=== PATIENT | male | born 1940 | race Caucasian/White ===

== ENCOUNTER → 2016-12-09 | Outpatient (CLI) | payer MEDICARE ==
[~2016-12-09] MED LIST: LEVO88TA4 PO; [UNRECOGNIZED DRUG - OTHER] PO
--- NOTE | 2016-12-09 17:03 | RAD ---
Clinical indications: Claudication. Findings: Duplex sonography of the peripheral arterial system of both lower extremities including mccarthy scale evaluation and color flow evaluation and spectral waveform analysis was performed.Abnormal monophasic waveforms are seen within the mid and distal right superficial femoral arteries extending through the right popliteal artery and the calf arteries. However, no occlusive disease or significant stenosis is identified by sonography proximal to this area. On the left side, abnormal flow velocity measurement is seen within the proximal left profunda femoral artery consistent with a 50% stenosis. There is a high flow velocity within the left popliteal artery consistent with a 50% stenosis. The waveforms on the left side are biphasic. No occlusive disease is seen. Peak systolic flow velocities are as follows: Right leg: common femoral artery- 139 cm/sec, profunda femoral artery -97 cm/sec, proximal superficial femoral artery -55cm/sec, mid superficial femoral artery -59 cm/sec, distal superficial femoral artery- 32 cm/sec, popliteal artery -24 cm/sec, proximal posterior tibial artery- 24 cm/sec, peroneal artery- 10 cm/sec, anterior tibial artery- 15 cm/sec, dorsalis pedis artery -11 cm/sec. Left leg: common femoral artery- 77 cm/sec, profunda femoral artery -277 cm/sec, proximal superficial femoral artery- 65cm/sec, mid superficial femoral artery- 131 cm/sec, distal superficial femoral artery- 107 cm/sec, popliteal artery -270 cm/sec, proximal posterior tibial artery -97 cm/sec, peroneal artery -60 cm/sec, anterior tibial artery -37 cm/sec, dorsalis pedis artery- 68 cm/sec. Impression: Abnormal monophasic waveforms are seen on the right side starting at the level of the right mid superficial femoral artery on down. However, no occlusive disease or significant stenosis is seen proximal to this area by sonography. High flow velocities are seen within the proximal left profunda femoral artery and within the left popliteal artery consistent with a 50% stenosis.
== END | disposition home or self-care (01) ==
LOC: US 13:42
PROVIDERS: ATTEND Family Medicine
DX: I73.9 Peripheral vascular disease, unspecified (principal)
CPT/HCPCS: 93925

== ENCOUNTER 2016-12-13 09:45 | Outpatient (CLI) | payer MEDICARE ==
[~2016-12-13] VITALS: Ht 170.2 cm; Wt 67.1 kg
[2016-12-13] VITALS (10 sets, daily range): BP systolic 150–185; BP diastolic 77–107
[2016-12-13] MEDS ORDERED: [UNRECOGNIZED DRUG - OTHER] PO (10:04)
[2016-12-13] MEDS ORDERED: LEVO88TA4 PO (10:04)
[2016-12-13 10:10] LABS: BASO # 0.1 x10^3/uL (0.0-0.2); BASO % 1 % (0-3); EOS % 6 % (0-3); HEMOGLOBIN 15.2 g/dL (13.0-17.5); LYMPH # 1.4 x10^3/uL (1.0-4.8); LYMPH % 22 % (24-48); MEAN CORPUSCULAR HEMOGLOBIN 30 pg (25-35); MEAN CORPUSCULAR HGB CONC 34 g/dL (31-37); MEAN CORPUSCULAR VOLUME 88 fL (79-100); MONO % 9 % (0-9); NEUT % 63 % (31-73); PLATELET COUNT 263 x10^3/uL (140-400); RED BLOOD COUNT 5.13 x10^6/uL (4.30-5.70); RED CELL DISTRIBUTION WIDTH 15.3 % (11.5-14.5); WHITE BLOOD COUNT 6.6 x10^3/uL (4.0-11.0)
[2016-12-13] MEDS ORDERED: IODIXANOL 320MG/ML 50ML VIAL. ONE (10:28)
[2016-12-13] MEDS ORDERED: IOHEXOL 300 MG/ML 100ML VIAL. ONE (10:28)
[2016-12-13] MEDS ORDERED: HEPARIN for ARTERIAL LINE 1,500 ML ONE (10:29)
[2016-12-13] MEDS ORDERED: LIDOCAINE 1% / SOD BICARB 8.4% 20 ML VIAL. IJ ONE ×2 (10:29→11:30)
[2016-12-13] MEDS ORDERED: IODIXANOL 320 MG/ML 100 ML VIAL. ONE (10:29)
[2016-12-13 10:39] LABS: CALCIUM 8.9 mg/dL (8.5-10.1); CREATININE 1.1 mg/dL (0.7-1.3); GFR 64.7; POTASSIUM 4.6 mmol/L (3.5-5.1)
[2016-12-13 10:59] LABS: PROTHROMBIN TIME PATIENT 12.7 SEC (11.7-14.0)
[2016-12-13] MEDS ORDERED: HEPARIN for IV BOLUS 10,000 UNIT/10 ML VIAL. ONE (11:16)
[2016-12-13] MEDS ORDERED: MIDAZOLAM HCL/PF 5 MG/5 ML VIAL. ONE (11:16)
[2016-12-13] MEDS ORDERED: fentaNYL PF VIAL 100 MCG/2 ML VIAL ONE (11:16)
[2016-12-13] MEDS ORDERED: MIDAZOLAM HCL/PF 2 MG/2 ML VIAL. IV ONE (11:30)
[2016-12-13] MEDS ORDERED: MIDAZOLAM HCL/PF 5 MG/5 ML VIAL. IV ONE ×2 (11:30→12:45)
[2016-12-13] MEDS ORDERED: IODIXANOL 320 MG/ML 100 ML VIAL. IART ONE (11:30)
[2016-12-13] MEDS ORDERED: CONTRAST GIVEN MC PRN (11:45)
[2016-12-13] MEDS ORDERED: NITROGLYCERIN 200 MCG/2 ML SYRINGE FOR CATH/VASC LAB. IART ONE (12:30)
[2016-12-13] MEDS ORDERED: fentaNYL PF VIAL 100 MCG/2 ML VIAL IV ONE (12:45)
[2016-12-13] MEDS ORDERED: IV NORMAL SALINE 1000ML BAG 1,000 ML IV ONE (12:45)
--- NOTE | 2016-12-13 13:07 | PDOC ---
MODERATE SEDATION ASSESSMENT RISKS/ALTERNATIVES Risks/Alternatives Risks and alternatives of this type of sedation and procedure discussed with: RISK/ALTERNATIVES: Patient H & P ON CHART H & P H & P on chart and reviewed for co-morbid conditions and appropriate labs. H&P ON CHART: Yes STATUS PREG STATUS ASSESSED: N/A MEDS/ALLERGIES REVIEWED Meds/Allergies Reviewed Medications and Allergies including time and route of recently administered narcotics and sedatives. MEDS/ALLERGIES REVIEWED: Yes ASA RATING ASA RATING: II AIRWAY ASSESSMENT Airway Assessment Airway patency, oral function limitations, presence of caps, crowns, dentures, partials, and ability to extend neck assessed. AIRWAY ASSESSMENT: Yes MALLAMPATI SCORE MALLAMPATI SCORE: II PRE-SEDATION ASSESSMENT PRE-SEDATION ASSESSMENT: Yes MICAH DUTTON MD Dec 13, 2016 13:07
--- NOTE | 2016-12-13 13:17 | PDOC1 ---
History and Physical Date of Procedure Date of Admission 12/13/16 Procedure Procedure Abdominal aortogram with bilateral lower extremity angio +/- intervention. Indication Indication 76 YO smoker with bilateral lower extremity pain, with nonpalpable distal pulses , and with abnormal noninvasive study. Past Medical History Past Medical History See Nursing Pre procedure PMH Past Surgical History Past Surgical History See Nursing Pre procedure PSH Current Medications Current Medications Current Medications Iodixanol (Visipaque 320) 50 ml STK-MED ONCE .ROUTE ; Start 12/13/16 at 10:28; Stop 12/13/16 at 10:29; Status DC Iohexol (Omnipaque 300 Mg/ml) 100 ml STK-MED ONCE .ROUTE ; Start 12/13/16 at 10: 28; Stop 12/13/16 at 10:29; Status DC Lidocaine/Sodium Bicarbonate (Buffered Lidocaine 1%) 20 ml STK-MED ONCE IJ ; Start 12/13/16 at 10:29; Stop 12/13/16 at 10:30; Status DC Heparin Sodium/ Sodium Chloride 1,500 ml @ As Directed STK-MED ONCE .ROUTE ; Start 12/13/16 at 10:29; Stop 12/13/16 at 10:30; Status DC Iodixanol (Visipaque 320) 100 ml STK-MED ONCE .ROUTE ; Start 12/13/16 at 10:29; Stop 12/13/16 at 10:30; Status DC Heparin Sodium (Porcine) (Heparin Sodium) 10,000 unit STK-MED ONCE .ROUTE ; Start 12/13/16 at 11:16; Stop 12/13/16 at 11:17; Status DC Fentanyl Citrate (Fentanyl 2ml Vial) 100 mcg STK-MED ONCE .ROUTE ; Start at 11:16; Stop 12/13/16 at 11:17; Status DC Midazolam HCl (Versed) 5 mg STK-MED ONCE .ROUTE ; Start 12/13/16 at 11:16; Stop 12/13/16 at 11:17; Status DC Heparin Sodium/ Sodium Chloride 1,000 unit 1X ONCE IART Last administered on t 12:38; Start 12/13/16 at 11:30; Stop 12/13/16 at 11:34; Status DC Lidocaine/Sodium Bicarbonate (Buffered Lidocaine 1%) 20 ml 1X ONCE IJ Last administered on 12/13/16t 12:38; Start 12/13/16 at 11:30; Stop 12/13/16 at 11:34 ; Status DC Midazolam HCl (Versed) 5 mg 1X ONCE IV Last administered on 12/13/16 12:39; Start 12/13/16 at 11:30; Stop 12/13/16 at 11:34; Status DC Midazolam HCl (Versed) 2 mg 1X ONCE IV ; Start 12/13/16 at 11:30; Stop at 11:34; Status DC Iodixanol (Visipaque 320) 100 ml 1X ONCE IART Last administered on 12/13/16 12:40; Start 12/13/16 at 11:30; Stop 12/13/16 at 11:34; Status DC Info (Do NOT chart on this entry -- for MONITORING) 1 each PRN DAILY PRN MC SEE COMMENTS; Start 12/13/16 at 11:45; Stop 12/15/16 at 11:44 Nitroglycerin (Nitroglycerin) 200 mcg 1X ONCE IART Last administered on 12:39; Start 12/13/16 at 12:30; Stop 12/13/16 at 12:31; Status DC Midazolam HCl (Versed) 5 mg 1X ONCE IV ; Start 12/13/16 at 12:45; Stop at 12:46; Status DC Fentanyl Citrate (Fentanyl 2ml Vial) 100 mcg 1X ONCE IV Last administered on 12:45; Start 12/13/16 at 12:45; Stop 12/13/16 at 12:46; Status DC Sodium Chloride 1,000 ml @ 100 mls/hr 1X ONCE IV Last administered on 11:30; Start 12/13/16 at 12:45; Stop 12/13/16 at 22:44 Active Scripts Active Reported [medestrol] 5 Ml PO QID Levothyroxine Sodium 88 Mcg Tablet 88 Mcg PO DAILYAC Allergies Allergies: Coded Allergies: No Known Drug Allergies (Unverified , 12/13/16) Physical Exam Vital Signs Vital Signs Date Time Temp Pulse Resp B/P (MAP) Pulse Ox O2 Delivery O2 Flow Rate FiO2 12/13/16 12:45 14 99 Room Air 12/13/16 12:34 78 12/13/16 10:25 98.0 150/88 (108) 98.0 Lungs: Clear to auscultation Heart: Regular rate Psych/Mental Status: Mental status NL Vascular Nonpalpable ankle/foot pulses bilaterally--no ischemic ulcerations Diagnostic Data/Imaging Images PMC bilateral lower extremity duplex Doppler exam from12/09/16 reviewed. Assessment Assessment 76 YO smoker with PAD, bilateral leg pain, nonpalpable distal pulses, and abnormal noninvasive study. Problems: Plan Plan Diagnostic angio +/- intervention, as indicated. MICAH DUTTON MD Dec 13, 2016 13:17
--- NOTE | 2016-12-13 13:34 | PDOC ---
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 Post-Procedure Diagnosis Post-Procedure Diagnosis Multiple angiographic abnormalities. High grade left RYAN. Distal abd aorta ectasia. Bilateral TRACEY aneurysms. Multifocal bilateral EIA stenoses. Short segment chronic right proximal pop occlusion. Mod focal mid left pop stenosis Sluggish 3 vessel r/o to ankle/foot on left. Sluggish right tibial r/o less well evaluated on nonselective images, but at least PT r/o to foot and AT r/o to distal calf. Procedure Performed Procedure Performed Abdominal aortogram with bilateral lower extremity angio. Type of Anesthesia Type of Anesthesia Local + Mod sedation Estimated Blood Loss EBL: 50 cc Condition of Patient Condition of Patient Stable. No apparent complication. Disposition Disposition Home from [facility] post recovery, if no problems. F/u with Dr Stearns, who plans to arrange consult with Dr Faulkner for comprehensive treatment plan. Encourage smoking cessation. Full report to follow. MICAH DUTTON MD Dec 13, 2016 13:34
[2016-12-13] MEDS ORDERED: ACETAMINOPHEN 325 MG TABLET. PO ONE (14:15)
[2016-12-13] MEDS ORDERED: NITROGLYCERIN 200 MCG/2 ML SYRINGE FOR CATH/VASC LAB. ONE (16:08)
--- NOTE | 2016-12-14 11:25 | RAD ---
Abdominal aortogram with bilateral lower extremity arteriogram Indication: 76-year-old male smoker with bilateral lower extremity pain, with abnormal noninvasive study, and with nonpalpable ankle/foot pulses. Diagnostic arteriogram, with possible intervention, has been requested by primary care physician. Fluoroscopy time: 13.4 minutes Kerma-area Product: 201 Gycm2 Contrast material: 55 cc Omnipaque 300. 125 cc Visipaque 320. Anesthesia: 64 minutes moderate sedation was provided utilizing a total of 2 mg Versed and 100 mcg fentanyl, IV. The patient was appropriately monitored by a qualified independent observer throughout the time of moderate sedation. Consent: The procedure was explained in its entirety to the patient and/or the patient's designated pharmaceutical sales representative by a member of the treatment team. This included a discussion of risks and benefits and commonly accepted alternatives to the procedure, as well as expected consequences of no treatment at all. Discussion of risks included, but was not limited to, those that are most frequent and those that are rare, but possibly severe or life-threatening, as well as the possibility of unforeseen complications. Sterility: All elements of maximal sterile barrier technique, hand hygiene, skin preparation, and, if ultrasound was used, sterile ultrasound technique were followed. Procedure: Informed consent was obtained from the patient. He was placed supine on the angiography table. Preliminary ultrasound examination of right groin revealed wide patency of right common femoral artery, which was documented with a single hard copy ultrasound image. Right groin was then prepped and draped in the usual sterile fashion, utilizing all elements of maximal sterile barrier technique, as described above. Moderate sedation was provided with IV Versed and fentanyl. Using aseptic technique, local anesthesia, direct sterile ultrasound guidance, and the micropuncture system, a 5 Czech right common femoral artery sheath was successfully introduced. Abdominal aortogram: A 5 Czech Omni Flush catheter was advanced through the right groin sheath over a Glidewire into suprarenal abdominal aorta under fluoroscopic guidance. Omnipaque 300 was injected and abdominal aortogram DSA images were obtained. Findings: Distal infrarenal abdominal aorta shows moderate fusiform ectasia, without definite calcific aneurysmal dilatation. There is focal 80-90% stenosis within proximal left renal artery. Proximal right renal artery is not well seen in profile SMA is opacified. ZAIRA is likely occluded at its origin. Oblique pelvis injections: The Omni Flush catheter was withdrawn into terminal aorta, just above bifurcation. Omnipaque 300 was injected and DSA images were obtained over pelvis in the KAZAKH and FERGUSON projections. Right side findings: Proximal right common iliac artery is normal in caliber, followed by mid and distal segment aneurysmal dilatation. Small caliber right hypogastric artery is patent, and appears to arise from distal aspect of the common iliac artery aneurysm in the KAZAKH projection. Right external iliac artery is diffusely diseased, including tandem proximal high-grade stenoses. Left side findings: Proximal left common iliac artery shows moderate to high-grade stenosis, followed by mid and distal segment aneurysmal dilatation. Patent left hypogastric artery shows at least moderate origin stenosis, and arises just distal to the common iliac artery aneurysm on FERGUSON images. Areas of moderate stenosis lie within proximal and mid left external iliac artery. Selective/superselective left lower extremity arteriogram: The 5 Czech Omni Flush catheter was advanced across aortic bifurcation over a Glidewire and was initially positioned within contralateral left common femoral artery. Visipaque was injected and DSA images were obtained over left groin and proximal thigh in the steep KAZAKH projection. The Omni Flush catheter was then exchanged for a 0.0 3 5-in. Quick cross catheter, which was advanced over a Glidewire into proximal left SFA. Dilute Visipaque was injected and DSA images were obtained over mid and distal thigh. The quick cross catheter was then further advanced over the Glidewire into proximal left popliteal artery. Dilute Visipaque was injected and DSA images were obtained centered over knee and AP and FERGUSON projections. The quick cross catheter was then further advanced into distal left popliteal artery. Dilute Visipaque was injected and DSA images were obtained from knee through ankle/foot. The quick cross catheter was then exchanged over a long Terumo advantage guidewire for a Sathish Cross catheter, which was superselectively introduced into proximal left anterior tibial artery. Dilute Visipaque was again injected and DSA images were obtained from proximal calf through foot. Findings: Left common femoral artery and bifurcation and deep femoral artery are widely patent. No significant left SFA stenosis is present. Focal moderate stenosis lies within mid left popliteal artery, at level of upper patella, without flow-limiting popliteal artery stenosis. Left tibial trifurcation is widely patent. Images obtained during injection into distal left popliteal artery revealed sluggish opacification of posterior tibial artery, which is widely patent from origin through medial and lateral plantar branches at mid foot. Those images also revealed sluggish opacification of peroneal artery, patent from origin through distal calf. Images obtained during direct injection into proximal left anterior tibial artery revealed sluggish flow through anterior tibial artery, which is patent from origin through dorsalis pedis artery. Right lower extremity runoff: Following selective/superselective left lower extremity arteriogram, the Omni Flush catheter was reintroduced through the right groin 5 Czech sheath and was positioned within the lateral distal right external iliac artery. Visipaque was injected and digital angiographic images were obtained from groin through ankle. Findings: There is mild narrowing within right common femoral artery. Right common femoral artery bifurcation and deep femoral artery are widely patent. Distal 8 cm of right superficial femoral artery shows moderate, generalized narrowing, followed by abrupt, complete, chronic, short segment occlusion, centered near abductor canal. Reconstituted right popliteal artery is widely patent, as is right tibial trifurcation. Tibial trifurcation runoff is sluggish (despite intra-arterial nitroglycerin), and is suboptimally evaluated on this nonselective study. However, right posterior tibial artery is patent from origin through at least ankle, and right anterior tibial artery is widely patent from origin through at least distal calf. Patient tolerated the procedure well without apparent complication. Hemostasis was achieved at the right groin puncture site utilizing the Mynx closure system. Impression: 1. Abdominal aortogram significant for focal severe proximal left renal artery stenosis, and fusiform ectasia of distal infrarenal abdominal aorta. 2. Oblique pelvis images significant for bilateral common iliac artery aneurysms, high-grade proximal left common iliac artery stenosis, tandem high-grade proximal right external iliac artery stenoses, and a moderate left external iliac artery stenoses. 3. Left tibial trifurcation runoff is sluggish. Left lower extremity selective/superselective arteriogram is otherwise unremarkable, without significant stenosis 4. Right lower extremity runoff is significant for focal, complete, chronic, short segment occlusion centered near abductor canal. Right tibial trifurcation runoff is sluggish and is suboptimally evaluated on this nonselective study, however, posterior tibial artery is patent from origin through at least ankle and right anterior tibial artery is patent from origin through at least distal calf.
== END 2016-12-13 15:50 | disposition home or self-care (01) ==
LOC: INTRAD 09:45
PROVIDERS: ATTEND Family Medicine
DX: I70.203 Unspecified atherosclerosis of native arteries of extremities, bilateral legs (principal); I70.1 Atherosclerosis of renal artery; I77.811 Abdominal aortic ectasia; F17.200 Nicotine dependence, unspecified, uncomplicated; E07.9 Disorder of thyroid, unspecified; Z87.39 Personal history of other diseases of the musculoskeletal system and connective tissue; Z72.0 Tobacco use
CPT/HCPCS: 36247; 36415; 75625; 75716; 75774; 76937; 80048; 85027; 85610; 99152; 99153; C1713; C1760; C1769; C1892; C1894; G0269; J2250; J3010; J3490; J7030; Q9967

== ENCOUNTER 2017-02-06 05:48 | Day surgery (SDC) | payer MEDICARE ==
[~2017-02-06 05:48] MED LIST changes: +ASPI-630 PO
[2017-02-06] MEDS ORDERED: IV RINGERS,LACTATED 1000ML 1,000 ML IV SCH (07:00)
[2017-02-06] MEDS ORDERED: MORPHINE SULFATE 2 MG/ML DISP.SYRIN. IV PRN (07:00)
[2017-02-06] MEDS ORDERED: PROCHLORPERAZINE 10 MG/2 ML VIAL. IV PRN (07:00)
[2017-02-06] MEDS ORDERED: fentaNYL PF VIAL 100 MCG/2 ML VIAL IV PRN ×2 (07:00)
[2017-02-06] MEDS ORDERED: ONDANSETRON PF 4 MG/2 ML VIAL. IV PRN (07:00)
[2017-02-06] MEDS ORDERED: LIDOCAINE 1% 1 ML SYRINGE. ID PRN (07:00)
[2017-02-06] MEDS ORDERED: HYDROmorphone 2 MG/ML VIAL IV PRN (07:00)
[2017-02-06] MEDS ORDERED: PROPOFOL 20 ML IV ONE (07:03)
[2017-02-06] MEDS ORDERED: LIDOCAINE 2% PF Vial for OR 5 ML VIAL. ONE (07:03)
[2017-02-06] MEDS ORDERED: BUPIVACAINE 0.5% 50 ML VIAL. ONE (07:14)
[2017-02-06] MEDS ORDERED: NEOMY/BACITR/POLYMYXIN OINT PACKET. TP ONE (07:14)
[2017-02-06] MEDS ORDERED: MIDAZOLAM HCL/PF 2 MG/2 ML VIAL. ONE (07:36)
--- NOTE | 2017-02-06 08:31 | OP ---
DATE OF SURGERY: 02/06/2017 PREOPERATIVE DIAGNOSIS: Left-sided headaches. POSTOPERATIVE DIAGNOSIS: Left-sided headaches. PROCEDURE: Left temporal artery biopsy. SURGEON: Chapin Sutton MD. ANESTHESIA: Local with sedation. ESTIMATED BLOOD LOSS: 10 mL. INTRAVENOUS FLUIDS: 700 mL. INDICATIONS: The patient is a 76-year-old gentleman with chronic left-sided headaches brought for a temporal artery biopsy. DESCRIPTION OF PROCEDURE: The patient was brought to the operating suite and with IV sedation on board, the left forehead and preauricular areas were prepped and draped in usual sterile fashion. A 0.5% Marcaine plain was infiltrated over the palpable vessel. Incision made and dissection carried down to the vessel. It was controlled proximally and distally with 3-0 Vicryl ties and a segment was removed. Hemostasis obtained with cautery. When present and a correct sponge count was obtained, the subcutaneous tissue was approximated with 3-0 Vicryl. The skin was closed with a subcuticular 4-0 Monocryl. Steri-Strips and sterile dressing applied. The patient was taken to the postop area in stable condition having tolerated the procedure well. CHAPIN SUTTON MD DR: NAMRATA/agustín JOB#: [id number] / [id number] ANA LAURA Canales MD
--- NOTE | 2017-02-06 08:36 | PDOC ---
BRIEF OPERATIVE NOTE Date: Feb 06, 2017 Pre-Op Diagnosis left sided headaches Post-Op Diagnosis same Procedure Performed left temporal artery biopsy Surgeon Nguyễn Anesthesia Type: General Blood Loss 10cc IV Fluid 700cc Specimens Obtained segment of left temporal artery Findings no obvious abnormality Complications none OPerative Note Wk# [id number] OCTAVIA SUTTON MD Feb 06, 2017 08:35
--- NOTE | 2017-02-06 08:37 | DISCH ---
DISCHARGE INSTRUCTIONS Condition on Discharge Condition on Discharge: Stable Activity After Discharge Activity Instructions for Disc: Activity as tolerated, Avoid exertion Lifting Instructions after Dis: No heavy lifting Driving Instructions after Dis: Do not drive today Wound Incision Care Wound/Incision Care: Ice to area for comfort Other wound/incision instructi: october shower Friday Follow-Up Follow Up With: Nguyễn in two weeks OCTAVIA SUTTON MD Feb 06, 2017 08:37
[2017-02-06] MEDS ORDERED: OXYC-323 PO (08:51)
[2017-02-06 09:12] VITALS: BP 156/92
--- NOTE | 2017-02-07 17:14 | PATHOLOGY ---
PATHOLOGY REPORT * * * * * * * * FINAL DIAGNOSIS: Left temporal artery biopsy: - No diagnostic abnormalities. COMMENT: Sections of the left temporal artery biopsy show no evidence of temporal arteritis. (JPM:mgr; 02/07/2017) REPORT ELECTRONICALLY SIGNED BY: Carlton Bucio M.D. DATE/TIME: 02/07/2017 17:13 * * * * * * * * GROSS PATHOLOGY: Received in formalin labeled "Thi Victor, left temporal artery biopsy," is a 2.6 and 0.5 cm segment of whitish-mccarthy tubular soft tissue measuring 0.2 cm in diameter. The tissue is submitted in toto in cassette A1. (JPM; 02/06/17) INITIAL CPT CODE(S): A; 91648 Professional services [place] [address] Technical services performed by [facility] at [address] [place] [address] [address], [place] [address]. SPECIMEN(S) RECEIVED: A.Left temporal artery biopsy CLINICAL HISTORY: Left sided headache PATIENT: THI VICTOR /AGE: 4 1940 (Age: 76) PATIENT #: [id number] ALT CASE #: SPECIMEN COLLECTION DATE: 02/06/2017 SPECIMEN RECEIVED DATE: 02/06/2017 [facility] - [address] [place] [address] - PHONE: [phone] * * * END OF REPORT * * *
== END 2017-02-06 09:29 | disposition home or self-care (01) ==
LOC: SURG 05:48
PROVIDERS: ATTEND Surgery
DX: R51 Headache (principal); E03.9 Hypothyroidism, unspecified; F17.200 Nicotine dependence, unspecified, uncomplicated; Z86.69 Personal history of other diseases of the nervous system and sense organs; Z98.41 Cataract extraction status, right eye; Z87.39 Personal history of other diseases of the musculoskeletal system and connective tissue; Z98.42 Cataract extraction status, left eye; Z72.89 Other problems related to lifestyle
CPT/HCPCS: 37609; C1769; J0690; J2250; J2704; J3490; J2001

== ENCOUNTER 2017-05-02 12:56 | Inpatient (IN) | payer MEDICARE ==
[~2017-05-02] VITALS: Ht 170.2 cm; Wt 65.8 kg
[~2017-05-02 12:56] MED LIST changes: +OXYC-323 PO
[2017-05-02 15:02] VITALS: BP 161/100
[2017-05-02 15:03] VITALS: BP 161/100
--- NOTE | 2017-05-02 16:04 | PDOC2 ---
ANALI DAVALOS TEACHER VISUALLY IMPAIRED 05/02/17 1604: CARDIAC CONSULT DATE OF CONSULT Date of Consult DATE: 05/02/17 TIME: 15:59 REASON FOR CONSULT Reason for Consult: CHF AFIB with RVR REFERRING PHYSICIAN Referring Physician: Dr. Stearns SOURCE Source: Chart review, Patient HISTORY OF PRESENT ILLNESS HISTORY OF PRESENT ILLNESS This is a 76 yo male who was a direct admit from Dr. Stearns secondary to shortness of breath. Patient report 2 week intermittent history or shortness of breath and lower extremity edema. Was placed on Lasix that helped symptoms temporarily. Denies any chest pain, dizziness, diaphoresis, palpitations, or nausea/vomiting. Has also had some mild VANEGAS. No orthopnea. This morning, was significantly SOA, so he went into Dr. Stearns's office to be seen. Was reportedly in AFIB with RVR and was admitted directly to the hospital. Presently, is SR/ST on telemetry. PAST MEDICAL HISTORY Cardiovascular: No pertinent hx Pulmonary: No pertinent hx CENTRAL NERVOUS SYSTEM: Other (chronic BARRIENTOS) GI: No pertinent hx Heme/Onc: Cancer (tonsilar ) Hepatobiliary: No pertinent hx Psych: No pertinent hx Rheumatologic: No pertinent hx Infectious disease: No pertinent hx ENT: No pertinent hx Renal/: No pertinent hx Endocrine: Hypothyroidism Dermatology: No pertinent hx PAST SURGICAL HISTORY Past Surgical History: Cataract Removal, Tonsillectomy FAMILY HISTORY Family History: Cancer, Heart Disease (brother CHF) SOCIAL HISTORY Smoke: <1 pack per day ALCOHOL: none Drugs: None Lives: Alone ALLERGIES ALLERGIES: Coded Allergies: No Known Drug Allergies (Unverified , 02/06/17) ROS Review of System 14 point ROS conducted with pertinent positives noted above in HPI. PHYSICAL EXAM General: Alert, Oriented X3, Cooperative, No acute distress HEENT: Atraumatic, Mucous membr. moist/pink Lungs: Clear to auscultation, Other (diminished bases ) Heart: Regular rate, Normal S1, Normal S2, Other (tele SR/ST, 2/6 systolic murmur ) Abdomen: Soft, No tenderness Extremities: Other (1+ bilateral LE edema ) Skin: No breakdown, No significant lesion Neuro: Normal speech, Sensation intact Psych/Mental Status: Mental status NL, Mood NL MUSCULOSKELETAL: No joint tenderness VITALS VITALS Vital Signs Date Time Temp Pulse Resp B/P (MAP) Pulse Ox O2 Delivery O2 Flow Rate FiO2 05/02/17 15:03 98.8 116 17 161/100 (120) 87 Room Air 98.8 ASSESSMENT/PLAN ASSESSMENT/PLAN 1. Dyspnea secondary to acute probable diastolic heart failure 2. AFIB with RVR; reportedly in PCP office today. Presently maintaining SR/ST 3. Hypertension 4. Hypothyroidism; resume levothyroxine 5. Proximal left RYAN; as per recent aortogram 6. Tobaccoism; discussed/encouraged cessation Recommendations Check routine labs, NT Pro BNP, lipids CXR Echo to assess LV function Diuresis with monitoring of labs Start metoprolol for HR and BP control Add ASA for stroke prevention [id number]- no indication for OAC at this time Further recommendations pending diagnostics Problems: CLEVELAND MEDINA MD 05/03/17 0913: CARDIAC CONSULT ALLERGIES ALLERGIES: Coded Allergies: No Known Drug Allergies (Unverified , 02/06/17) ASSESSMENT/PLAN ASSESSMENT/PLAN Patient seen and examined 05/02/17 (late entry). Agree with SPECIAL SERVICE REPRESENTATIVE's assessment and plan. Continue diuresis for congestive heart failure, most probably acute on chronic diastolic. Atrial fibrillation new onset, presently back in sinus rhythm. Agree with initiating metoprolol. Start aspirin for stroke prevention without any long-term anticoagulation at this time due to low CHADS2-Vasc score. Check 2-D echo to assess LV systolic function. Thank you for your consultation. Problems: ANALI DAVALOS APRN May 02, 2017 16:04 CLEVELAND MEDINA MD May 03, 2017 09:13
[2017-05-02 16:40] LABS: BASO # 0.1 x10^3/uL (0.0-0.2); BASO % 1 % (0-3); EOS % 3 % (0-3); HEMOGLOBIN 11.9 g/dL (13.0-17.5); LYMPH # 1.1 x10^3/uL (1.0-4.8); LYMPH % 15 % (24-48); MEAN CORPUSCULAR HEMOGLOBIN 25 pg (25-35); MEAN CORPUSCULAR HGB CONC 31 g/dL (31-37); MEAN CORPUSCULAR VOLUME 81 fL (79-100); MONO % 11 % (0-9); NEUT % 71 % (31-73); PLATELET COUNT 249 x10^3/uL (140-400); RED BLOOD COUNT 4.72 x10^6/uL (4.30-5.70); RED CELL DISTRIBUTION WIDTH 17.2 % (11.5-14.5); WHITE BLOOD COUNT 7.3 x10^3/uL (4.0-11.0)
[2017-05-02 16:57] LABS: ALBUMIN 2.5 g/dL (3.4-5.0); ALBUMIN/GLOBULIN RATIO 0.7 (1.0-1.7); CALCIUM 8.7 mg/dL (8.5-10.1); CREATININE 1.2 mg/dL (0.7-1.3); GFR 58.6; POTASSIUM 4.1 mmol/L (3.5-5.1); TOTAL BILIRUBIN 0.2 mg/dL (0.2-1.0)
[2017-05-02] MEDS ORDERED: FURO-68 PO (17:00)
[2017-05-02] MEDS: ASPIRIN ENTERIC COATED 81 MG TABLET.DR. PO SCH (17:31)
[2017-05-02] MEDS: METOPROLOL TART IMMED RELEASE 25 MG TABLET. PO SCH (17:32)
--- NOTE | 2017-05-02 17:50 | EKG ---
[facility] [address] [place] [address] Test Date: 2017-05-02 Test Time: 17:46:34 Pat Name: THI VICTOR Department: Room: 201 1 Gender: M Calendering Supervisor: : 1940 Requested By: ANALI DAVALOS Order Number: [id number] Reading MD: Juliocesar Benavides MD Measurements Intervals [place] Rate: 106 P: 55 [place]: 134 QRS: 45 QRSD: 76 T: 152 QT: 348 QTc: 464 Interpretive Statements SINUS TACHYCARDIA PAC Electronically Signed On 05-05-2017 14:15:35 OFFICE EQUIPMENT TECHNICIAN by Juliocesar Benavides MD
[2017-05-02] MEDS ORDERED: FUROSEMIDE 20 MG/2 ML VIAL. IVP ONE (18:15)
[2017-05-02] MEDS ORDERED: POTASSIUM CHLORIDE 20 MEQ TABLET.ER. PO ONE (18:15)
--- NOTE | 2017-05-02 18:36 | HP ---
ADMIT DATE: CHIEF COMPLAINT AND HISTORY OF PRESENT ILLNESS: This 76-year-old white male is well known to me from followup in the office. The patient was seen first for this problem on 04/21 where he was felt to be probably in congestive heart failure with a new onset. He had a BNP of 13,000 and left greater than right pleural effusions, 1-2+ edema, and he was felt to be in sinus tachycardia at that point in time. He weighed 159 pounds, was started on Lasix, was reevaluated 4 days later on the where his weight was brought down to 151. He was feeling better with the same. His edema had essentially resolved. An echocardiogram was set up for him, let him to continue the Lasix; however, he was unable to get the echocardiogram done until the 05/27. He represented on the with his leg swelling again, short of breath, at this point, he was still tachycardic, but irregular consistent with atrial fibrillation, felt to be in congestive heart failure with new onset AFib and was admitted for diuresis, etc. PAST MEDICAL HISTORY: Remarkable for chronic headaches, which are felt to be migraine or cluster in nature. 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 He has had a head and neck cancer many years ago for which he had radiation, has a history of peripheral arterial disease. MEDICATIONS: Brought with the patient, listed on the computer and have been addressed. ALLERGIES: He has no known drug allergies. SOCIAL HISTORY: He is a former smoker, nondrinker, does not use drugs. FAMILY HISTORY: Noncontributory. REVIEW OF SYSTEMS: As mentioned above. PHYSICAL EXAMINATION: GENERAL: He is well-developed, well-nourished white male, who appears ill. VITAL SIGNS: Stable with the exception of respiratory rate of 20 and a pulse of 120 and irregular. He is afebrile. HEAD, EYES, EARS, NOSE AND THROAT: Unremarkable. NECK: Supple, without adenopathy or thyromegaly. CHEST: Reveals decreased breath sounds at bases. HEART: Irregularly irregular with rate of approximately 120 in the office. ABDOMEN: Soft, nontender, without hepatosplenomegaly, masses. EXTREMITIES: Without cyanosis, clubbing. There is 1+ edema present again. NEUROLOGIC: He is intact. IMPRESSION: Congestive heart failure, quite symptomatic with new onset atrial fibrillation with rapid ventricular response. PLAN: The patient has been admitted. Cardiology has been consulted. Labs, x-ray will once again be checked. Diuresis will be ongoing. The patient will be monitored, managed and treated appropriately. ANA LAURA KRAMER MD DR: COLBY/agustín JOB#: [id number] / [id number]
[2017-05-02] MEDS ORDERED: FUROSEMIDE 40 MG/4 ML VIAL. IVP ONE (18:45)
[2017-05-02 19:10] VITALS: BP 147/91
[2017-05-02 19:48] LABS: BILIRUBIN,URINE SMALL (NEG); GLUCOSE,URINE NEGATIVE (NEG); NITRITE,URINE NEGATIVE (NEG); PROTEIN,URINE NEGATIVE (NEG-TRACE)
[2017-05-02 19:57] LABS: BACTERIA,URINE 0 /HPF (0-FEW); RBC,URINE 0 /HPF (0-2); SQUAMOUS EPITHELIAL CELL,UR OCC /LPF
[2017-05-02] MEDS ORDERED: oxyCODONE/APAP 5/325 1 TAB TABLET PO PRN (20:00)
[2017-05-02 23:21] VITALS: BP 124/69
[2017-05-03 03:00] VITALS: BP 143/80
[2017-05-03 03:39] LABS: CALCIUM 8.7 mg/dL (8.5-10.1); GFR 72.3; POTASSIUM 3.5 mmol/L (3.5-5.1)
[2017-05-03 03:42] LABS: CHOLESTEROL/HDL RATIO 5.7
[2017-05-03 07:00] VITALS: BP 145/88
[2017-05-03] MEDS: ASPIRIN ENTERIC COATED 81 MG TABLET.DR. PO SCH (07:52)
[2017-05-03] MEDS: METOPROLOL TART IMMED RELEASE 25 MG TABLET. PO SCH ×2 (07:52→21:01)
[2017-05-03] MEDS: LEVOTHYROXINE 88 MCG TABLET PO SCH (07:52)
--- NOTE | 2017-05-03 08:41 | RAD ---
AP PORTABLE CHEST Clinical Indication: CHF 201. Weakness today. Comparison: None. Findings: Cardiac size normal. Increased interstitial markings diffusely. There is small to moderate left pleural effusion and mild bibasilar airspace disease. There is no pneumothorax. No acute bone or mildly. IMPRESSION: 1. Small to moderate left pleural effusion. 2. Mild bibasilar airspace disease. 3. Diffusely increased interstitial markings. 4. Findings suggest CHF.
--- NOTE | 2017-05-03 10:14 | PDOC ---
PROGRESS NOTES Subjective Subjective Patient feeling better. Dyspnea improved. Denied any chest pain or palpitations. Objective Objective Vital Signs Date Time Temp Pulse Resp B/P (MAP) Pulse Ox O2 Delivery O2 Flow Rate FiO2 05/03/17 07:59 Nasal Cannula 2.0 05/03/17 07:52 86 143/80 05/03/17 07:00 98.0 19 94 98.0 Intake and Output 05/03/17 07:00 Intake Total 100 ml Output Total 100 ml Balance 0 ml Intake Oral 100 ml Output Urine Total 100 ml # Voids 3 Physical Exam Abdomen: Soft, No tenderness Heart: Regular rate, Normal S1, Normal S2, Other (tele SR/ST, 2/6 systolic murmur ) Extremities: Other (1+ bilateral LE edema ) General: Alert, Oriented X3, Cooperative, No acute distress HEENT: Atraumatic, Mucous membr. moist/pink Lungs: Clear to auscultation, Other (diminished bases ) MUSCULOSKELETAL: No joint tenderness Neuro: Normal speech, Sensation intact Psych/Mental Status: Mental status NL, Mood NL Skin: No breakdown, No significant lesion Assessment Assessment 1. Congestive heart failure, most probably acute on chronic diastolic. Symptoms improving with Lasix. Check 2-D echo to assess LV function. 2. AFIB with RVR; new onset, diagnosed by PCP in office. Maintaining sinus rhythm since admission. Telemetry showed frequent PACs and a few brief runs of atrial tachycardia. Continue aspirin and metoprolol. 3. Hypertension. Well controlled. 4. Hypothyroidism; continue levothyroxine 5. Tobacco abuse: Advised smoking cessation. Comment Review of Relevant I have reviewed the following items regi (where applicable) has been applied. Labs Laboratory Tests Test 05/02/17 16:35 05/02/17 18:30 05/03/17 02:15 White Blood Count 7.3 x10^3/uL (4.0-11.0) Red Blood Count 4.72 x10^6/uL (4.30-5.70) Hemoglobin 11.9 g/dL (13.0-17.5) Hematocrit 38.0 % (39.0-53.0) Mean Corpuscular Volume 81 fL (79-100) Mean Corpuscular Hemoglobin 25 pg (25-35) Mean Corpuscular Hemoglobin Concent 31 g/dL (31-37) Red Cell Distribution Width 17.2 % (11.5-14.5) Platelet Count 249 x10^3/uL (140-400) Neutrophils (%) (Auto) 71 % (31-73) Lymphocytes (%) (Auto) 15 % (24-48) Monocytes (%) (Auto) 11 % (0-9) Eosinophils (%) (Auto) 3 % (0-3) Basophils (%) (Auto) 1 % (0-3) Neutrophils # (Auto) 5.2 x10^3uL (1.8-7.7) Lymphocytes # (Auto) 1.1 x10^3/uL (1.0-4.8) Monocytes # (Auto) 0.8 x10^3/uL (0.0-1.1) Eosinophils # (Auto) 0.2 x10^3/uL (0.0-0.7) Basophils # (Auto) 0.1 x10^3/uL (0.0-0.2) Sodium Level 143 mmol/L (136-145) 141 mmol/L (136-145) Potassium Level 4.1 mmol/L (3.5-5.1) 3.5 mmol/L (3.5-5.1) Chloride Level 105 mmol/L (98-107) 104 mmol/L (98-107) Carbon Dioxide Level 33 mmol/L (21-32) 32 mmol/L (21-32) Anion Gap 5 (6-14) 5 (6-14) Blood Urea Nitrogen 19 mg/dL (8-26) 19 mg/dL (8-26) Creatinine 1.2 mg/dL (0.7-1.3) 1.0 mg/dL (0.7-1.3) Estimated GFR (Cockcroft-Gault) 58.6 72.3 BUN/Creatinine Ratio 16 (6-20) Glucose Level 107 mg/dL (70-99) 87 mg/dL (70-99) Calcium Level 8.7 mg/dL (8.5-10.1) 8.7 mg/dL (8.5-10.1) Total Bilirubin 0.2 mg/dL (0.2-1.0) Aspartate Amino Transf (AST/SGOT) 12 U/L (15-37) Alanine Aminotransferase (ALT/SGPT) 13 U/L (16-63) Alkaline Phosphatase 62 U/L (46-116) VK-Jre-N-Type Natriuretic Peptide 80914 pg/mL (0-449) Total Protein 6.0 g/dL (6.4-8.2) Albumin 2.5 g/dL (3.4-5.0) Albumin/Globulin Ratio 0.7 (1.0-1.7) Thyroid Stimulating Hormone (TSH) 0.327 uIU/mL (0.358-3.74) Urine Collection Type Unknown Urine Color Yellow Urine Clarity Clear Urine pH 6.0 Urine Specific [place] 1.025 Urine Protein Negative mg/dL (NEG-TRACE) Urine Glucose (UA) Negative mg/dL (NEG) Urine Ketones (Stick) Negative mg/dL (NEG) Urine Blood Negative (NEG) Urine Nitrite Negative (NEG) Urine Bilirubin Small (NEG) Urine Urobilinogen Dipstick 1.0 mg/dL (0.2 mg/dL) Urine Leukocyte Esterase Small (NEG) Urine RBC 0 /HPF (0-2) Urine WBC 1-4 /HPF (0-4) Urine Squamous Epithelial Cells Occ /LPF Urine Bacteria 0 /HPF (0-FEW) Urine Hyaline Casts Few /HPF Urine Mucus Marked /LPF Triglycerides Level 39 mg/dL (0-150) Cholesterol Level 147 mg/dL (0-200) LDL Cholesterol, Calculated 113 mg/dL (0-100) VLDL Cholesterol, Calculated 8 mg/dL (0-40) Non-HDL Cholesterol Calculated 121 mg/dL (0-129) HDL Cholesterol 26 mg/dL (40-60) Cholesterol/HDL Ratio 5.7 Medications Current Medications Aspirin (Ecotrin) 81 mg DAILYWBKFT PO Last administered on 05/03/17 07:52; Start 05/02/17 at 17:00 Furosemide (Lasix) 20 mg 1X ONCE IVP ; Start 05/02/17 at 18:15; Stop at 18:16; Status Cancel Furosemide (Lasix) 40 mg 1X ONCE IVP Last administered on 05/02/17 18:42; Start 05/02/17 at 18:45; Stop 05/02/17 at 18:46; Status DC Levothyroxine Sodium (Synthroid) 88 mcg DAILYAC PO Last administered on 07:52; Start 05/03/17 at 07:30 Metoprolol Tartrate (Lopressor) 25 mg BID PO Last administered on 05/03/17 07 :52; Start 05/02/17 at 17:00 Oxycodone/ Acetaminophen (Percocet 5/325) 1 tab Q4HRS PRN PO PAIN; Start 05/02 at 20:00 Potassium Chloride (Klor-Con) 20 meq 1X ONCE PO Last administered on 18:41; Start 05/02/17 at 18:15; Stop 05/02/17 at 18:16; Status DC Vitals/I & O Vital Sign - Last 24 Hours 05/02/17 05/02/17 05/02/17 05/02/17 15:02 15:03 15:30 17:32 Temp 98.8 98.8 98.8 98.8 Pulse 116 116 Resp 17 17 B/P (MAP) 161/100 (120) 161/100 (120) 156/96 Pulse Ox 87 87 O2 Delivery Room Air Room Air O2 Flow Rate 2.0 05/02/17 05/02/17 05/02/17 05/03/17 19:10 19:53 23:21 03:00 Temp 98.7 98.6 98.9 98.7 98.6 98.9 Pulse 102 95 86 Resp 16 19 20 B/P (MAP) 147/91 (109) 124/69 (87) 143/80 (101) Pulse Ox 90 97 94 O2 Delivery Room Air Nasal Cannula Nasal Cannula Nasal Cannula O2 Flow Rate 2.0 2.0 2.0 05/03/17 05/03/17 05/03/17 07:00 07:52 07:59 Temp 98.0 98.0 Pulse 87 86 Resp 19 B/P (MAP) 145/88 (107) 143/80 Pulse Ox 94 O2 Delivery Nasal Cannula Nasal Cannula O2 Flow Rate 2.0 2.0 Intake and Output 05/02/17 05/02/17 05/03/17 15:00 23:00 07:00 Intake Total 100 ml Output Total 100 ml Balance 0 ml CLEVELAND MEDINA MD May 03, 2017 10:14
[2017-05-03 11:00] VITALS: BP 126/78
--- NOTE | 2017-05-03 11:39 | PDOC ---
GENERAL General: vss and afebrile. bnp 14K and cxr cw chf and lasix iv added this am. feels better, likely related to heart rate control with beta blockade. nsr with rate in 70's currently. no a-fib since admission. echo has not been done yet. moderate left pleural effusion on cxr. chest with decreased breath sounds left base from same. abdomen benign and edema actually has decreased since admission with no diuresis to date. mildly decreased tsh. continue present care and await echo. Problems: VITAL SIGNS Vital Signs: Vital Signs Date Time Temp Pulse Resp B/P (MAP) Pulse Ox O2 Delivery O2 Flow Rate FiO2 05/03/17 11:00 98.2 82 19 126/78 (94) 95 Nasal Cannula 2.0 98.2 I & O I & O Intake and Output 05/03/17 07:00 Intake Total 100 ml Output Total 100 ml Balance 0 ml Intake Oral 100 ml Output Urine Total 100 ml # Voids 3 ALLERGIES Allergies: Allergies Coded Allergies Type Severity Reaction Last Updated Verified No Known Drug Allergies 02/06/17 No MEDS Medications: Current Medications Medications (Trade) Dose Ordered Sig/Adarsh Start Time Stop Time Status Last Admin Dose Admin Aspirin (Ecotrin) 81 mg DAILYWBKFT 05/02/17 17:00 05/03/17 07:52 81 MG Furosemide (Lasix) 40 mg BID92 05/03/17 14:00 Levothyroxine Sodium (Synthroid) 88 mcg DAILYAC 05/03/17 07:30 05/03/17 07:52 88 MCG Metoprolol Tartrate (Lopressor) 25 mg BID 05/02/17 17:00 05/03/17 07:52 25 MG Oxycodone/ Acetaminophen (Percocet 5/325) 1 tab Q4HRS PRN 05/02/17 20:00 Potassium Chloride (Klor-Con) 20 meq 1X ONCE 05/02/17 18:15 05/02/17 18:16 DC 05/02/17 18:41 20 MEQ LAB Lab: Laboratory Tests Test 05/02/17 16:35 05/02/17 18:30 05/03/17 02:15 White Blood Count 7.3 x10^3/uL (4.0-11.0) Red Blood Count 4.72 x10^6/uL (4.30-5.70) Hemoglobin 11.9 g/dL (13.0-17.5) Hematocrit 38.0 % (39.0-53.0) Mean Corpuscular Volume 81 fL (79-100) Mean Corpuscular Hemoglobin 25 pg (25-35) Mean Corpuscular Hemoglobin Concent 31 g/dL (31-37) Red Cell Distribution Width 17.2 % (11.5-14.5) Platelet Count 249 x10^3/uL (140-400) Neutrophils (%) (Auto) 71 % (31-73) Lymphocytes (%) (Auto) 15 % (24-48) Monocytes (%) (Auto) 11 % (0-9) Eosinophils (%) (Auto) 3 % (0-3) Basophils (%) (Auto) 1 % (0-3) Neutrophils # (Auto) 5.2 x10^3uL (1.8-7.7) Lymphocytes # (Auto) 1.1 x10^3/uL (1.0-4.8) Monocytes # (Auto) 0.8 x10^3/uL (0.0-1.1) Eosinophils # (Auto) 0.2 x10^3/uL (0.0-0.7) Basophils # (Auto) 0.1 x10^3/uL (0.0-0.2) Sodium Level 143 mmol/L (136-145) 141 mmol/L (136-145) Potassium Level 4.1 mmol/L (3.5-5.1) 3.5 mmol/L (3.5-5.1) Chloride Level 105 mmol/L (98-107) 104 mmol/L (98-107) Carbon Dioxide Level 33 mmol/L (21-32) 32 mmol/L (21-32) Anion Gap 5 (6-14) 5 (6-14) Blood Urea Nitrogen 19 mg/dL (8-26) 19 mg/dL (8-26) Creatinine 1.2 mg/dL (0.7-1.3) 1.0 mg/dL (0.7-1.3) Estimated GFR (Cockcroft-Gault) 58.6 72.3 BUN/Creatinine Ratio 16 (6-20) Glucose Level 107 mg/dL (70-99) 87 mg/dL (70-99) Calcium Level 8.7 mg/dL (8.5-10.1) 8.7 mg/dL (8.5-10.1) Total Bilirubin 0.2 mg/dL (0.2-1.0) Aspartate Amino Transf (AST/SGOT) 12 U/L (15-37) Alanine Aminotransferase (ALT/SGPT) 13 U/L (16-63) Alkaline Phosphatase 62 U/L (46-116) NT-Khz-G-Type Natriuretic Peptide 10873 pg/mL (0-449) Total Protein 6.0 g/dL (6.4-8.2) Albumin 2.5 g/dL (3.4-5.0) Albumin/Globulin Ratio 0.7 (1.0-1.7) Thyroid Stimulating Hormone (TSH) 0.327 uIU/mL (0.358-3.74) Urine Collection Type Unknown Urine Color Yellow Urine Clarity Clear Urine pH 6.0 Urine Specific [place] 1.025 Urine Protein Negative mg/dL (NEG-TRACE) Urine Glucose (UA) Negative mg/dL (NEG) Urine Ketones (Stick) Negative mg/dL (NEG) Urine Blood Negative (NEG) Urine Nitrite Negative (NEG) Urine Bilirubin Small (NEG) Urine Urobilinogen Dipstick 1.0 mg/dL (0.2 mg/dL) Urine Leukocyte Esterase Small (NEG) Urine RBC 0 /HPF (0-2) Urine WBC 1-4 /HPF (0-4) Urine Squamous Epithelial Cells Occ /LPF Urine Bacteria 0 /HPF (0-FEW) Urine Hyaline Casts Few /HPF Urine Mucus Marked /LPF Triglycerides Level 39 mg/dL (0-150) Cholesterol Level 147 mg/dL (0-200) LDL Cholesterol, Calculated 113 mg/dL (0-100) VLDL Cholesterol, Calculated 8 mg/dL (0-40) Non-HDL Cholesterol Calculated 121 mg/dL (0-129) HDL Cholesterol 26 mg/dL (40-60) Cholesterol/HDL Ratio 5.7 ANA LAURA KRAMER MD May 03, 2017 11:39
[2017-05-03] MEDS: FUROSEMIDE 40 MG/4 ML VIAL. IVP SCH (14:34)
[2017-05-03 15:00] VITALS: BP 153/88
[2017-05-03 19:45] VITALS: BP 128/77
[2017-05-03 23:45] VITALS: BP 119/75
[2017-05-04 03:00] VITALS: BP 122/71
[2017-05-04 06:04] LABS: CALCIUM 8.8 mg/dL (8.5-10.1); CREATININE 1.2 mg/dL (0.7-1.3); GFR 58.6
[2017-05-04 07:00] VITALS: BP 140/79
[2017-05-04] MEDS: ASPIRIN ENTERIC COATED 81 MG TABLET.DR. PO SCH (08:42)
[2017-05-04] MEDS: METOPROLOL TART IMMED RELEASE 25 MG TABLET. PO SCH ×2 (08:42→21:20)
[2017-05-04] MEDS: LEVOTHYROXINE 88 MCG TABLET PO SCH (08:42)
[2017-05-04] MEDS: FUROSEMIDE 40 MG/4 ML VIAL. IVP SCH ×2 (08:43→14:44)
[2017-05-04 11:00] VITALS: BP 140/78
--- NOTE | 2017-05-04 11:11 | PDOC ---
GENERAL General: vss and afebrile. awake and alert. peeing like a race horse. edema gone and weight decreased 2 lbs. creatinine increased to 1.2. K+ 4.0. echo done this am and pending. no further a-fib. continue same with final plans based on echo results. Problems: VITAL SIGNS Vital Signs: Vital Signs Date Time Temp Pulse Resp B/P (MAP) Pulse Ox O2 Delivery O2 Flow Rate FiO2 05/04/17 08:42 81 122/71 05/04/17 07:00 98.3 20 97 Nasal Cannula 2.0 98.3 I & O I & O Intake and Output 05/04/17 07:00 Intake Total 2195 ml Output Total 2250 ml Balance -55 ml Intake Oral 2195 ml Output Urine Total 2250 ml # Voids 1 ALLERGIES Allergies: Allergies Coded Allergies Type Severity Reaction Last Updated Verified No Known Drug Allergies 02/06/17 No MEDS Medications: Current Medications Medications (Trade) Dose Ordered Sig/Adarsh Start Time Stop Time Status Last Admin Dose Admin Aspirin (Ecotrin) 81 mg DAILYWBKFT 05/02/17 17:00 05/04/17 08:42 81 MG Furosemide (Lasix) 40 mg BID92 05/03/17 14:00 05/04/17 08:43 40 MG Levothyroxine Sodium (Synthroid) 88 mcg DAILYAC 05/03/17 07:30 05/04/17 08:42 88 MCG Metoprolol Tartrate (Lopressor) 25 mg BID 05/02/17 17:00 05/04/17 08:42 25 MG Oxycodone/ Acetaminophen (Percocet 5/325) 1 tab Q4HRS PRN 05/02/17 20:00 Potassium Chloride (Klor-Con) 20 meq 1X ONCE 05/02/17 18:15 05/02/17 18:16 DC 05/02/17 18:41 20 MEQ LAB Lab: Laboratory Tests Test 05/04/17 03:00 Sodium Level 141 mmol/L (136-145) Potassium Level 4.0 mmol/L (3.5-5.1) Chloride Level 104 mmol/L (98-107) Carbon Dioxide Level 34 mmol/L (21-32) Anion Gap 3 (6-14) Blood Urea Nitrogen 20 mg/dL (8-26) Creatinine 1.2 mg/dL (0.7-1.3) Estimated GFR (Cockcroft-Gault) 58.6 Glucose Level 75 mg/dL (70-99) Calcium Level 8.8 mg/dL (8.5-10.1) ANA LAURA KRAMER MD May 04, 2017 11:11
--- NOTE | 2017-05-04 12:56 | CARD ---
APPROVED REPORT EXAM: Two-dimensional and M-mode echocardiogram with Doppler and color Doppler. Other Information Quality : GoodHR: 87bpm Rhythm : NSR INDICATION Chest Pain 2D DIMENSIONS Left Atrium(2D)3.7 (1.6-4.0cm)IVSd1.1 (0.7-1.1cm) Aortic Root(2D)2.9 (2.0-3.7cm)LVDd5.1 (3.9-5.9cm) LVOT Diameter2.1 (1.8-2.4cm)PWd1.1 (0.7-1.1cm) LA Ptzwet62 (18-58mL)LVDs4.1 (2.5-4.0cm) FS (%) 18.7 %SV47.1 ml LVEF(%)38.5 (>50%)CO6.6 L/min M-Mode DIMENSIONS Aortic Cusp Exc1.36 (1.5-2.0cm) Aortic Valve AoV Peak Ed.103.1cm/sAoV VTI16.2cm AO Peak GR.4.3mmHgLVOT VTI 11.88cm AO Mean GR.3mmHg Mitral Valve MV E Odepvcyx190.9cm/sMV E Peak Gr.6mmHg MV DECEL [id number] A Bbyrswnd50.1cm/s MV E Mean Gr.3mmHgE/A Ratio2.5 MV A [id number] TDI Lateral E' P. V10.76cm/sMedial E' P. V4.15cm/s E/Lateral E'11.4E/Medial E'29.6 Pulmonary Valve PV Peak Jvdytmqi50.4cm/s Tricuspid Valve TR P. Etrjncbi111uc/sRAP [id number] TR Peak Gr.35zuArLWTQ39ybAa Pulmonary Vein S1 Ecrkvuek31.1cm/sS2 Wcnkkmyi41.96cm/s D2 Ypynlsgy04.0cm/s LEFT VENTRICLE The left ventricle is normal size. There is normal left ventricular wall thickness. Left ventricular systolic function is moderately impaired. The ejection fraction is estimated at 30-35%. There is glob al hypokinesis of the left ventricle. There is no ventricular septal defect visualized. There is no l eft ventricular aneurysm. There is no mass noted in the left ventricle. RIGHT VENTRICLE The right ventricle is normal size. There is normal right ventricular wall thickness. The right ventr icular systolic function is normal. ATRIA The left atrium size is normal. The right atrium size is normal. The interatrial septum is intact wit h no evidence for an atrial septal defect or patent foramen ovale as noted on 2-D or Doppler imaging. AORTIC VALVE The aortic valve is normal in structure and function. Doppler and Color Flow revealed no significant aortic regurgitation. There is no significant aortic valvular stenosis. There is no aortic valvular v egetation. MITRAL VALVE The mitral valve is normal in structure and function. There is no evidence of mitral valve prolapse. There is no mitral valve stenosis. Doppler and Color Flow revealed mild mitral regurgitation. TRICUSPID VALVE The tricuspid valve is normal in structure and function. Doppler and Color Flow revealed mild tricusp id regurgitation. There is mild pulmonary hypertension. The PA pressure was estimated at 41 mmHg. The re is no tricuspid valve prolapse or vegetation. There is no tricuspid valve stenosis. PULMONIC VALVE The pulmonary valve is normal in structure and function. Doppler and Color Flow revealed mild pulmoni c valvular regurgitation. There is no pulmonic valvular stenosis. GREAT VESSELS The aortic root is normal in size. The ascending aorta is normal in size. The IVC is normal in size a nd collapses >50% with inspiration. PERICARDIAL EFFUSION There is moderate left pleural effusion. There is no evidence of significant pericardial effusion. Critical Notification Critical Value: No <Conclusion> Left ventricular systolic function is moderately impaired. The ejection fraction is estimated at 30-35%. Mild mitral regurgitation. Mild tricuspid regurgitation. The PA pressure was estimated at 41 mmHg. There is no evidence of significant pericardial effusion. There is moderate left pleural effusion.
--- NOTE | 2017-05-04 14:10 | PDOC ---
PROGRESS NOTES Subjective Subjective Patient feeling better. Dyspnea improved. Denied any chest pain. Objective Objective Vital Signs Date Time Temp Pulse Resp B/P (MAP) Pulse Ox O2 Delivery O2 Flow Rate FiO2 05/04/17 11:00 98.1 92 19 140/78 (98) 97 Nasal Cannula 2.0 98.1 Intake and Output 05/04/17 07:00 Intake Total 2195 ml Output Total 2250 ml Balance -55 ml Intake Oral 2195 ml Output Urine Total 2250 ml # Voids 1 Physical Exam Abdomen: Soft, No tenderness Heart: Regular rate, Normal S1, Normal S2, Other (tele SR/ST, 2/6 systolic murmur ) Extremities: Other (1+ bilateral LE edema ) General: Alert, Oriented X3, Cooperative, No acute distress HEENT: Atraumatic, Mucous membr. moist/pink Lungs: Clear to auscultation, Other (diminished bases ) MUSCULOSKELETAL: No joint tenderness Neuro: Normal speech, Sensation intact Psych/Mental Status: Mental status NL, Mood NL Skin: No breakdown, No significant lesion Assessment Assessment 1. Congestive heart failure, acute on chronic systolic. Symptoms significantly improved with diuresis with Lasix. 2-D echo showed LVEF 30-35%. Plan for cardiac catheterization tomorrow to rule out ischemic etiology. Risks and benefits were explained and he is agreeable. 2. AFIB with RVR; new onset, diagnosed by PCP in office. Maintaining sinus rhythm since admission. Telemetry showed frequent PACs and a few brief runs of atrial tachycardia. Continue aspirin and metoprolol. We will consider initiating long-term anticoagulation after cardiac cath. 3. Hypertension. Well controlled. 4. Hypothyroidism; continue levothyroxine 5. Tobacco abuse: Advised smoking cessation. Comment Review of Relevant I have reviewed the following items regi (where applicable) has been applied. Labs Laboratory Tests Test 05/04/17 03:00 Sodium Level 141 mmol/L (136-145) Potassium Level 4.0 mmol/L (3.5-5.1) Chloride Level 104 mmol/L (98-107) Carbon Dioxide Level 34 mmol/L (21-32) Anion Gap 3 (6-14) Blood Urea Nitrogen 20 mg/dL (8-26) Creatinine 1.2 mg/dL (0.7-1.3) Estimated GFR (Cockcroft-Gault) 58.6 Glucose Level 75 mg/dL (70-99) Calcium Level 8.8 mg/dL (8.5-10.1) Microbiology 05/02/17 Urine Culture - Final, Complete 05/02/17 Urine Culture Result 1 (KURT) - Final, Complete Vitals/I & O Vital Sign - Last 24 Hours 05/03/17 05/03/17 05/03/17 05/03/17 15:00 19:45 20:06 20:19 Temp 98.1 98.0 98.1 98.0 Pulse 91 88 Resp 20 21 B/P (MAP) 153/88 (109) 128/77 (94) Pulse Ox 93 85 92 O2 Delivery Nasal Cannula Room Air Nasal Cannula Nasal Cannula O2 Flow Rate 2.0 2.0 2.0 05/03/17 05/03/17 05/04/17 05/04/17 21:01 23:45 03:00 07:00 Temp 98.0 98.2 98.3 98.0 98.2 98.3 Pulse 88 85 81 92 Resp 22 20 20 B/P (MAP) 128/77 119/75 (90) 122/71 (88) 140/79 (99) Pulse Ox 93 94 97 O2 Delivery Nasal Cannula Nasal Cannula Nasal Cannula O2 Flow Rate 2.0 2.0 2.0 05/04/17 05/04/17 05/04/17 08:00 08:42 11:00 Temp 98.1 98.1 Pulse 81 92 Resp 19 B/P (MAP) 122/71 140/78 (98) Pulse Ox 97 O2 Delivery Nasal Cannula Nasal Cannula O2 Flow Rate 2.0 2.0 Intake and Output 05/03/17 05/03/17 05/04/17 15:00 23:00 07:00 Intake Total 1300 ml 775 ml 120 ml Output Total 600 ml 1250 ml 400 ml Balance 700 ml -475 ml -280 ml CLEVELAND MEDINA MD May 04, 2017 14:10
[2017-05-04 15:00] VITALS: BP 132/78
[2017-05-04 19:31] VITALS: BP 124/71
[2017-05-04 22:56] VITALS: BP 134/79
[2017-05-05] VITALS (17 sets, daily range): BP systolic 119–153; BP diastolic 56–94
[2017-05-05] MEDS: METOPROLOL TART IMMED RELEASE 25 MG TABLET. PO SCH ×2 (08:32→20:03)
--- NOTE | 2017-05-05 08:32 | PDOC ---
GENERAL General: vss and afebrile. awake and alert and breathing better. echo with decreased EF at 30-35% and heart cath for ischemic evaluation of cardiomyopathy. chest clear and heart regular and no edema. plans to follow cath. Problems: VITAL SIGNS Vital Signs: Vital Signs Date Time Temp Pulse Resp B/P (MAP) Pulse Ox O2 Delivery O2 Flow Rate FiO2 05/05/17 07:00 98.3 83 20 138/86 (103) 95 Nasal Cannula 2.0 98.3 I & O I & O Intake and Output 05/05/17 06:59 Intake Total 2780 ml Output Total 2825 ml Balance -45 ml Intake Oral 2780 ml Output Urine Total 2825 ml ALLERGIES Allergies: Allergies Coded Allergies Type Severity Reaction Last Updated Verified No Known Drug Allergies 02/06/17 No MEDS Medications: Current Medications Medications (Trade) Dose Ordered Sig/Adarsh Start Time Stop Time Status Last Admin Dose Admin Aspirin (Ecotrin) 81 mg DAILYWBKFT 05/02/17 17:00 05/04/17 08:42 81 MG Furosemide (Lasix) 40 mg BID92 05/03/17 14:00 05/04/17 14:44 40 MG Levothyroxine Sodium (Synthroid) 88 mcg DAILYAC 05/03/17 07:30 05/04/17 08:42 88 MCG Metoprolol Tartrate (Lopressor) 25 mg BID 05/02/17 17:00 05/04/17 21:20 25 MG Oxycodone/ Acetaminophen (Percocet 5/325) 1 tab Q4HRS PRN 05/02/17 20:00 Potassium Chloride (Klor-Con) 20 meq 1X ONCE 05/02/17 18:15 05/02/17 18:16 DC 05/02/17 18:41 20 MEQ ANA LAURA KRAMER MD May 05, 2017 08:32
[2017-05-05] MEDS: FUROSEMIDE 40 MG/4 ML VIAL. IVP SCH ×2 (08:33→14:00)
[2017-05-05] MEDS: ASPIRIN ENTERIC COATED 81 MG TABLET.DR. PO SCH (08:33)
[2017-05-05] MEDS: LEVOTHYROXINE 88 MCG TABLET PO SCH (08:33)
--- NOTE | 2017-05-05 11:40 | PDOC ---
MODERATE SEDATION ASSESSMENT RISKS/ALTERNATIVES Risks/Alternatives Risks and alternatives of this type of sedation and procedure discussed with: RISK/ALTERNATIVES: Patient H & P ON CHART H & P H & P on chart and reviewed for co-morbid conditions and appropriate labs. H&P ON CHART: Yes STATUS PREG STATUS ASSESSED: N/A MEDS/ALLERGIES REVIEWED Meds/Allergies Reviewed Medications and Allergies including time and route of recently administered narcotics and sedatives. MEDS/ALLERGIES REVIEWED: Yes ASA RATING ASA RATING: II AIRWAY ASSESSMENT Airway Assessment Airway patency, oral function limitations, presence of caps, crowns, dentures, partials, and ability to extend neck assessed. AIRWAY ASSESSMENT: Yes MALLAMPATI SCORE MALLAMPATI SCORE: II PRE-SEDATION ASSESSMENT PRE-SEDATION ASSESSMENT: Yes CLEVELAND MEDINA MD May 05, 2017 11:40
[2017-05-05] MEDS ORDERED: IOHEXOL 300 MG/ML 100ML VIAL. ONE (11:56)
[2017-05-05] MEDS ORDERED: LIDOCAINE 2% 20 ML VIAL. ONE (11:56)
[2017-05-05] MEDS ORDERED: NITROGLYCERIN 200 MCG/2 ML SYRINGE FOR CATH/VASC LAB. ONE (12:09)
[2017-05-05] MEDS ORDERED: MIDAZOLAM HCL/PF 2 MG/2 ML VIAL. ONE (12:09)
[2017-05-05] MEDS ORDERED: HEPARIN for IV BOLUS 10,000 UNIT/10 ML VIAL. ONE ×2 (12:09→12:34)
[2017-05-05] MEDS ORDERED: VERAPAMIL 5 MG/2 ML VIAL. ONE (12:09)
[2017-05-05] MEDS ORDERED: fentaNYL PF VIAL 100 MCG/2 ML VIAL ONE (12:09)
[2017-05-05] MEDS ORDERED: MIDAZOLAM HCL/PF 2 MG/2 ML VIAL. IV ONE (12:15)
[2017-05-05] MEDS ORDERED: IOHEXOL 300 MG/ML 100ML VIAL. IART ONE (12:15)
[2017-05-05] MEDS ORDERED: fentaNYL PF VIAL 100 MCG/2 ML VIAL IV ONE (12:15)
[2017-05-05] MEDS ORDERED: HEPARIN for IV BOLUS 10,000 UNIT/10 ML VIAL. IART ONE (12:15)
[2017-05-05] MEDS ORDERED: LIDOCAINE 2% 20 ML VIAL. IJ ONE (12:15)
[2017-05-05] MEDS ORDERED: VERAPAMIL 5 MG/2 ML VIAL. IART ONE (12:15)
[2017-05-05] MEDS ORDERED: NITROGLYCERIN 200 MCG/2 ML SYRINGE FOR CATH/VASC LAB. IART ONE (12:15)
[2017-05-05] MEDS ORDERED: HEPARIN for IV BOLUS 10,000 UNIT/10 ML VIAL. IV ONE (12:45)
--- NOTE | 2017-05-05 13:42 | CARD ---
APPROVED REPORT Procedure(s) performed: 1. Left heart catheterization, selective coronary angiography via right girard sradial approach 2. Instant wave free ratio (IFR) of left anterior descending artery Moderate sedation: 27 minutes INDICATION The indication(s) include : Acute systolic heart failure, cardiomyopathy. PROCEDURE NARRATIVE After explaining the risks, benefits and alternative options, informed consent was obtained from korin ent. Patient was brought to the cardiac Icu Clerk and right wrist was prepped and draped in the usual fashion after confirming a positive modified Elbert's test. Arterial access was obtained in the [facility] t radial artery and a 6 Jamaican sheath was inserted. 6 Jamaican Grzegorz catheter was used to perform ras ective angiography of the left and right coronary arteries. LVEDP and transaortic gradients remeasure d. Left ventriculography was not performed due to recent noninvasive assessment of LVEF. Since miriam kinsey was found to have angiographically borderline significant stenosis involving the left anterior desc ending artery, a decision was made to perform physiologic assessment using Instant wave free ratio (I FR). The stenosis was crossed with [place] Verrata pressure wire and IFR measurement was made that c syed back physiologically not significant at 0.93. Patient tolerated the procedure well. Hemostasis was achieved using TR band. There were no immediate complications. The following findings were note d. FINDINGS 1. Hemodynamics: Left ventricular end-diastolic pressure of 11 mmHg. No pullback gradient across th e aortic valve. 2. Coronary angiography: a. The left main coronary artery arose from the left sinus of Valsalva, gave rise to the left anteri or descending and left circumflex arteries and did not show any significant stenosis. b. The left anterior descending artery showed 50% bifurcation stenosis involving the midsegment of L AD and ostial segment of diagonal branch. This was found to be physiologically not significant based on IFR measurement of 0.93. c. The left circumflex artery did not show any significant stenosis. d. The right coronary artery was a large and dominant vessel arising from the right sinus of Valsalv a that did not show any significant stenosis. Conclusion Single-vessel coronary artery disease involving left anterior descending artery, found to be physiolo gically insignificant based on IFR measurement. Recommendations Optimization of medical therapy for nonischemic cardiomyopathy and repeat 2-D echo in 3 months to elfego luate the need for AICD implantation.
[2017-05-05] MEDS ORDERED: ATORVASTATIN CALCIUM 20 MG TABLET PO SCH (21:00)
[2017-05-06 02:50] VITALS: BP 122/66
[2017-05-06 07:00] VITALS: BP 137/76
--- NOTE | 2017-05-06 08:13 | PDOC ---
GENERAL General: see discharge summary. Problems: VITAL SIGNS Vital Signs: Vital Signs Date Time Temp Pulse Resp B/P (MAP) Pulse Ox O2 Delivery O2 Flow Rate FiO2 05/06/17 02:55 95 Nasal Cannula 2.0 05/06/17 02:50 98.5 86 18 122/66 (84) 98.5 ALLERGIES Allergies: Allergies Coded Allergies Type Severity Reaction Last Updated Verified No Known Drug Allergies 02/06/17 No MEDS Medications: Current Medications Medications (Trade) Dose Ordered Sig/Adarsh Start Time Stop Time Status Last Admin Dose Admin Apixaban (Eliquis) 5 mg BID 05/06/17 09:00 Aspirin (Ecotrin) 81 mg [id number] 05/02/17 17:00 05/05/17 08:33 81 MG Atorvastatin Calcium (Lipitor) 20 mg QHS 05/05/17 21:00 05/05/17 20:03 20 MG Fentanyl Citrate (Fentanyl 2ml Vial) 100 mcg 1X ONCE 05/05/17 12:15 05/05/17 12:20 DC 05/05/17 12:51 25 MCG Furosemide (Lasix) 40 mg DAILY 05/06/17 09:00 Heparin Sodium (Porcine) (Heparin Sodium) 4,000 unit 1X ONCE 05/05/17 12:45 05/05/17 12:46 DC 05/05/17 12:45 5,000 UNIT Heparin Sodium/ Sodium Chloride 1,000 unit 1X ONCE 05/05/17 12:15 05/05/17 12:20 DC 05/05/17 12:49 1,000 UNIT Iohexol (Omnipaque 300 Mg/ml) 100 ml 1X ONCE 05/05/17 12:15 05/05/17 12:20 DC 05/05/17 12:49 90 ML Levothyroxine Sodium (Synthroid) 88 mcg DAILYAC 05/03/17 07:30 05/05/17 08:33 88 MCG Lidocaine HCl 20 ml 1X ONCE 05/05/17 12:15 05/05/17 12:20 DC 05/05/17 12:50 1 ML Lisinopril (Prinivil) 5 mg DAILY 05/06/17 09:00 Metoprolol Tartrate (Lopressor) 25 mg BID 05/02/17 17:00 05/05/17 20:03 25 MG Midazolam HCl (Versed) 2 mg 1X ONCE 05/05/17 12:15 11/20/17 12:20 DC 05/05/17 12:51 1 MG Nitroglycerin (Nitroglycerin) 200 mcg 1X ONCE 05/05/17 12:15 05/05/17 12:20 DC 05/05/17 12:49 200 MCG Oxycodone/ Acetaminophen (Percocet 5/325) 1 tab Q4HRS PRN 05/02/17 20:00 Potassium Chloride (Klor-Con) 20 meq 1X ONCE 05/02/17 18:15 05/02/17 18:16 DC 05/02/17 18:41 20 MEQ Verapamil HCl (Verapamil) 2.5 mg 1X ONCE 05/05/17 12:15 05/05/17 12:20 DC 05/05/17 12:50 2.5 MG ANA LAURA KRAMER MD May 06, 2017 08:13
[2017-05-06] MEDS ORDERED: APIXABAN 5 MG TABLET. PO SCH (09:00)
[2017-05-06] MEDS ORDERED: FUROSEMIDE 40 MG TABLET. PO SCH (09:00)
[2017-05-06] MEDS ORDERED: LISINOPRIL 5 MG TABLET. PO SCH (09:00)
[2017-05-06] MEDS: LEVOTHYROXINE 88 MCG TABLET PO SCH (09:20)
[2017-05-06] MEDS: METOPROLOL TART IMMED RELEASE 25 MG TABLET. PO SCH (09:21)
[2017-05-06] MEDS: ASPIRIN ENTERIC COATED 81 MG TABLET.DR. PO SCH (09:21)
[2017-05-06] MEDS ORDERED: ATOR20TA58 PO (10:02)
[2017-05-06] MEDS ORDERED: METO25TA4 PO (10:03)
[2017-05-06] MEDS ORDERED: LISI-338 PO (10:05)
[2017-05-06] MEDS ORDERED: FURO40TA4 PO (10:05)
[2017-05-06] MEDS ORDERED: APIX5TAB PO (10:06)
[2017-05-06] MEDS ORDERED: ASPI-630 PO (10:13)
--- NOTE | 2017-05-06 10:22 | PDOC ---
JANINA LARES HOT CELL TECHNICIAN 05/06/17 1022: CARDIO Progress Notes Date and Time Date of Service 05/06/2017 Time of Evaluation 0930 Subjective Subjective: No Chest Pain, No shortness of breath, No Palpitations, No Dizziness Vitals Vitals Vital Signs Date Time Temp Pulse Resp B/P (MAP) Pulse Ox O2 Delivery O2 Flow Rate FiO2 05/06/17 09:23 86 137/76 05/06/17 08:05 Room Air 05/06/17 07:00 98.8 17 95 2.0 98.8 Weight Weight [ ] Input and Output Intake and Output Intake and Output 05/06/17 06:59 Intake Total 840 ml Output Total 200 ml Balance 640 ml Intake Oral 840 ml Output Urine Total 200 ml # Voids 4 # Bowel Movements 1 Microbiology Micro Microbiology 05/02/17 Urine Culture - Final, Complete 05/02/17 Urine Culture Result 1 (KURT) - Final, Complete Physical Exam HEENT: Neck Supple W Full Motion Chest: Symmetric LUNGS: Other (diminished bases ) Heart: S1S2, RRR (SR) Abdomen: Soft N/T Extremities: No Calf Tenderness Neurology: alert, oriented, follow commands Other Exams right radial arteriotomy site intact no erythema and neurovascular status intact. Assessment Assessment 1. Acute on chronic systolic CHF CHF: EF 30-35%. Presently compensated 2. NICM: NYHA 1-2 3. CAD: LHC revealed LAD lesion found to be physiologically insignificant based on IFR measurement. CP free 4. PAFIB RVR: new onset. presently SR. [id number] 5 5. HTN: controlled 6. Hypothyroidism 7. Undiagnosed COPD with chronic tobaccoism with underlying moderate pulmonary HTN 8. HLP Recommendations 1. Continue with lasix therapy. Statin. ECASA 81 mg daily. 2. Continue lopressor. Start on eliquis. Lifevest prior to DC. 3. Continue with secondary prevention, smoking cessation 4. Will reevaluate in 3 months and note for AICD need. 5. COPD optimization per PCP 6. PCXR, O2 sat on RA 82% likely inaccurate reading, O2 supply for cardiac optimization pending 6 minute walk. 7. Discussed with RN and to educate about CHF prevention. Namely with treatment compliance, daily wt, home BP monitoring and fluid restriction. CLEVELAND MEDINA MD 05/06/17 1633: CARDIO Progress Notes Assessment Assessment Patient seen and examined. Agree with RADIAL DRILL OPERATOR's assessment and plan. Acute on chronic systolic heart failure better compensated. Maintaining sinus rhythm. Start Eliquis. Cardiac catheterization yesterday did not show any significant coronary artery disease. Continue medical therapy for nonischemic cardiomyopathy, consider LifeVest and repeat echo in 3 months. We will discuss options for treating his PAD as an outpatient. Okay for discharge From cardiac standpoint. JANINA LARES APRN May 06, 2017 10:22 CLEVELAND MEDINA MD May 06, 2017 16:33
[2017-05-06 11:00] VITALS: BP 130/81
[2017-05-06] MEDS ORDERED: POTASSIUM CHLORIDE 10 MEQ TABLET.ER. PO SCH (11:00)
[2017-05-06 11:12] LABS: CALCIUM 9.8 mg/dL (8.5-10.1); CREATININE 1.3 mg/dL (0.7-1.3); GFR 53.4; MAGNESIUM 2.3 mg/dL (1.8-2.4); POTASSIUM 4.6 mmol/L (3.5-5.1)
[2017-05-06 14:52] VITALS: BP 89/52
--- NOTE | 2017-05-06 16:02 | RAD ---
EXAM: Chest one view. HISTORY: Congestive heart failure. COMPARISON: 05/02/2017. FINDINGS: A frontal view of the chest is obtained. Small bilateral pleural effusions on the left greater than right persist. Previously noted pulmonary edema has mostly resolved. Mild opacities in the bases may represent only atelectasis. Hyperinflation suggests chronic obstructive pulmonary disease. There is no pneumothorax. The heart is not enlarged. IMPRESSION: 1. Improved pulmonary edema. Stable small pleural effusions on the left greater than right. 2. Chronic obstructive pulmonary disease.
--- NOTE | 2017-05-08 05:27 | DS ---
DATE OF DISCHARGE: 05/06/2017 PRIMARY DIAGNOSIS: Acute systolic congestive heart failure. ADDITIONAL DIAGNOSES: Edema, atrial fibrillation with rapid ventricular response prior to admission, slightly decreased thyroid-stimulating hormone, left pleural effusion, cardiomyopathy with an ejection fraction of 30-35%. CHIEF COMPLAINT AND HISTORY OF PRESENT ILLNESS: This 76-year-old white male is well known to me from followup in the office. The patient was found to be in congestive heart failure on the date of admission in the office. He actually was first seen for this problem on 04/21/2017, but was felt to be in congestive heart failure with new onset. He had a BNP of 13,000 and left greater than right pleural effusions, 1-2+ edema with some sinus tach at that point in time. Weight 159 pounds. Was started on Lasix, reevaluated 4 days later on the . His weight was down to 151. He was feeling better with the same and his edema essentially resolved. Echocardiogram was set up for him, and he was continued on Lasix. However, he was unable to get the echocardiogram done until 05/27. He represented on the with leg swelling, shortness of air and tachycardic but irregular, felt to be consistent with atrial fibrillation and was admitted for diuresis and evaluation of the arrhythmia. SUMMARY OF STAY: The patient was admitted, diuresed throughout the stay with improvement in his symptomatology and edema. He had no AFib during the stay, but had some SVT-type events that were short lived and may have been what we were hearing in the office. He was taken for heart cath to rule out an ischemic etiology, when his echocardiogram showed cardiomyopathy with an ejection fraction of 30-35%. On heart cath, he was not found to have any significant coronary artery disease, but once again found to have cardiomyopathy and was felt to be on nonischemic basis. Medicines were adjusted and the patient was felt ready for dismissal with outpatient followup on the Friday following this discharge and this was accomplished. DISPOSITION: The patient is discharged to home. DIET: Low sodium diet. ACTIVITY: As tolerated, office this coming Friday. DISCHARGE MEDICATIONS: Listed on the med rec and have been addressed. ANA LAURA KRAMER MD DR: COLBY/agustín JOB#: [id number] / [id number]
== END 2017-05-06 16:30 | disposition home or self-care (01) | DRG 286 ==
LOC: 2 NORTH 14:25
PROVIDERS: ADMIT Family Medicine; ATTEND Family Medicine
PROC: 4A023N7 Measurement of Cardiac Sampling and Pressure, Left Heart, Percutaneous Approach (ICD-10-PCS; principal; 2017-05-05)
PROC: B2111ZZ Fluoroscopy of Multiple Coronary Arteries using Low Osmolar Contrast (ICD-10-PCS; 2017-05-05)
DX: I11.0 Hypertensive heart disease with heart failure (principal); E43 Unspecified severe protein-calorie malnutrition; I48.91 Unspecified atrial fibrillation; I42.9 Cardiomyopathy, unspecified; E03.9 Hypothyroidism, unspecified; E78.5 Hyperlipidemia, unspecified; F17.210 Nicotine dependence, cigarettes, uncomplicated; G43.909 Migraine, unspecified, not intractable, without status migrainosus; I47.1 Supraventricular tachycardia; I50.43 Acute on chronic combined systolic (congestive) and diastolic (congestive) heart failure; I25.10 Atherosclerotic heart disease of native coronary artery without angina pectoris; I73.9 Peripheral vascular disease, unspecified; Z82.49 Family history of ischemic heart disease and other diseases of the circulatory system
CPT/HCPCS: 36415; 71010; 80048; 80053; 80061; 81001; 83735; 83880; 84443; 85025; 87086; 93005; 93306; 93458; 93571; 94620; 99152; 99153; C1769; C1892; J1644; J1940; J2250; J3010; J3490; Q9967; J2001

== ENCOUNTER → 2017-07-31 | Outpatient (CLI) | payer MEDICARE | END | disposition home or self-care (01) | LOC: ECHO 13:14 | DX: I34.0 Nonrheumatic mitral (valve) insufficiency (principal); I42.8 Other cardiomyopathies; I51.89 Other ill-defined heart diseases | CPT/HCPCS: 93306 ==

== ENCOUNTER 2017-08-19 08:33 | Observation (INO) | payer MEDICARE ==
[2017-08-19] MEDS: IV RINGERS,LACTATED 1000ML 1,000 ML IV (07:00)
[2017-08-19] MEDS: BACITRACIN 50,000 UNIT in IV NORMAL SALINE 250ML 250 ML IRR (09:00)
[2017-08-19] MEDS ORDERED: PROPOFOL 40 ML IV (09:20)
[2017-08-19] MEDS ORDERED: LIDOCAINE 2% PF Vial for OR 5 ML VIAL. (09:20)
[2017-08-19] MEDS ORDERED: KETAMINE HCL 500 MG/10 ML VIAL. (09:21)
[2017-08-19 09:22] LABS: HEMATOCRIT 42.3 % (39.0-53.0); HEMOGLOBIN 13.8 g/dL (13.0-17.5); MEAN CORPUSCULAR HEMOGLOBIN 29 pg (25-35); MEAN CORPUSCULAR HGB CONC 33 g/dL (31-37); MEAN CORPUSCULAR VOLUME 90 fL (79-100); PLATELET COUNT 254 x10^3/uL (140-400); RED BLOOD COUNT 4.69 x10^6/uL (4.30-5.70); RED CELL DISTRIBUTION WIDTH 19.1 % (11.5-14.5); WHITE BLOOD COUNT 7.6 x10^3/uL (4.0-11.0)
[2017-08-19] MEDS ORDERED: PROPOFOL 100 ML IV (09:22)
[2017-08-19] MEDS ORDERED: MIDAZOLAM HCL/PF 2 MG/2 ML VIAL. (09:23)
[2017-08-19] MEDS ORDERED: fentaNYL PF VIAL 100 MCG/2 ML VIAL (09:23)
[2017-08-19 09:32] LABS: INR 1.1 (0.8-1.1); PROTHROMBIN TIME PATIENT 13.3 SEC (11.7-14.0)
[2017-08-19] MEDS ORDERED: LIDOCAINE 2%/EPI 1:100,000 20 ML VIAL. (10:08)
[2017-08-19] MEDS: LIDOCAINE 2% 20 ML VIAL. IJ (11:00)
[2017-08-19] MEDS ORDERED: NO ANTICOAGULANT THERAPY. MC (11:30)
[2017-08-19 12:55] LABS: ANION GAP 8 (6-14); BLOOD UREA NITROGEN 18 mg/dL (8-26); CALCIUM 8.8 mg/dL (8.5-10.1); CARBON DIOXIDE 27 mmol/L (21-32); CHLORIDE 106 mmol/L (98-107); CREATININE 1.4 mg/dL (0.7-1.3); GLUCOSE 100 mg/dL (70-99); SODIUM 141 mmol/L (136-145)
[2017-08-19] MEDS: oxyCODONE/APAP 5/325 1 TAB TABLET PO (18:56)
[2017-08-19] MEDS: ATORVASTATIN CALCIUM 20 MG TABLET PO (20:11)
[2017-08-20] MEDS: METOPROLOL TART IMMED RELEASE 25 MG TABLET. PO (08:45)
[2017-08-20] MEDS: LISINOPRIL 5 MG TABLET. PO (08:46)
== END 2017-08-20 13:26 | disposition home or self-care (01) ==
LOC: CCL 08:33 → 2 SOUTH 10:17
DX: I42.9 Cardiomyopathy, unspecified (principal); I50.22 Chronic systolic (congestive) heart failure; I25.10 Atherosclerotic heart disease of native coronary artery without angina pectoris
CPT/HCPCS: 33230; 36415; 71045; 71046; 80048; 85027; 85610; 93641; 96365; 96366; 96375; C1721; C1895; G0378; G0379; J0690; J2250; J2704; J3010; J3490; J7120

== ENCOUNTER 2017-10-27 15:23 | Inpatient (IN) | payer MEDICARE ==
[2017-10-27 16:48] LABS: ADD MAN DIFF? NO
[2017-10-27 16:52] LABS: BASO # 0.1 x10^3/uL (0.0-0.2); BASO % 1 % (0-3); EOS # 0.3 x10^3/uL (0.0-0.7); EOS % 3 % (0-3); HEMATOCRIT 39.3 % (39.0-53.0); HEMOGLOBIN 13.3 g/dL (13.0-17.5); LYMPH # 1.4 x10^3/uL (1.0-4.8); LYMPH % 18 % (24-48); MEAN CORPUSCULAR HEMOGLOBIN 32 pg (25-35); MEAN CORPUSCULAR HGB CONC 34 g/dL (31-37); MEAN CORPUSCULAR VOLUME 95 fL (79-100); MONO # 0.8 x10^3/uL (0.0-1.1); MONO % 9 % (0-9); NEUT # 5.6 x10^3uL (1.8-7.7); NEUT % 69 % (31-73); PLATELET COUNT 180 x10^3/uL (140-400); RED BLOOD COUNT 4.12 x10^6/uL (4.30-5.70); RED CELL DISTRIBUTION WIDTH 14.3 % (11.5-14.5); WHITE BLOOD COUNT 8.2 x10^3/uL (4.0-11.0)
[2017-10-27 17:10] LABS: ALBUMIN 3.2 g/dL (3.4-5.0); ALBUMIN/GLOBULIN RATIO 0.9 (1.0-1.7); ALK PHOS 73 U/L (46-116); ALT (SGPT) 18 U/L (16-63); ANION GAP 6 (6-14); AST (SGOT) 19 U/L (15-37); BLOOD UREA NITROGEN 29 mg/dL (8-26); BUN/CREATININE RATIO 16 (6-20); CALCIUM 9.2 mg/dL (8.5-10.1); CARBON DIOXIDE 29 mmol/L (21-32); CHLORIDE 106 mmol/L (98-107); CREATININE 1.8 mg/dL (0.7-1.3); GFR 36.6; GLUCOSE 87 mg/dL (70-99); POTASSIUM 5.1 mmol/L (3.5-5.1); SODIUM 141 mmol/L (136-145); TOTAL BILIRUBIN 0.3 mg/dL (0.2-1.0); TOTAL PROTEIN 6.8 g/dL (6.4-8.2)
[2017-10-27 17:19] LABS: THYROID STIM HORMONE (TSH) 1.534 uIU/mL (0.358-3.74)
[2017-10-27] MEDS: METOPROLOL TART IMMED RELEASE 25 MG TABLET. PO (17:28)
[2017-10-27] MEDS: LISINOPRIL 5 MG TABLET. PO (17:29)
[2017-10-27 18:14] LABS: BILIRUBIN,URINE SMALL (NEG); CLARITY,URINE CLEAR; COLOR,URINE YELLOW; GLUCOSE,URINE NEGATIVE (NEG); NITRITE,URINE NEGATIVE (NEG); PROTEIN,URINE 30 mg/dL (NEG-TRACE)
[2017-10-27 18:36] LABS: BACTERIA,URINE FEW /HPF (0-FEW); HYALINE CASTS, URINE MANY /HPF; RBC,URINE OCC /HPF (0-2)
[2017-10-27] MEDS ORDERED: NITROGLYCERIN OINT 1 GM PACKET. TP (18:45)
[2017-10-27] MEDS: ATORVASTATIN CALCIUM 20 MG TABLET PO (20:29)
[2017-10-27] MEDS: APIXABAN 2.5 MG TABLET. PO (20:30)
[2017-10-28] MEDS: LEVOTHYROXINE 88 MCG TABLET PO (06:55)
[2017-10-28 08:34] LABS: ANION GAP 9 (6-14); BLOOD UREA NITROGEN 28 mg/dL (8-26); CALCIUM 8.8 mg/dL (8.5-10.1); CARBON DIOXIDE 26 mmol/L (21-32); CHLORIDE 106 mmol/L (98-107); CREATININE 1.4 mg/dL (0.7-1.3); GFR 48.9; GLUCOSE 78 mg/dL (70-99); MAGNESIUM 2.1 mg/dL (1.8-2.4); POTASSIUM 4.6 mmol/L (3.5-5.1); SODIUM 141 mmol/L (136-145)
[2017-10-28] MEDS: APIXABAN 2.5 MG TABLET. PO (09:09)
[2017-10-28] MEDS: METOPROLOL TART IMMED RELEASE 25 MG TABLET. PO (09:09)
[2017-10-28] MEDS: ANTI-COAG MONITOR BY PHARMACY. MC (09:16)
[2017-10-28] MEDS: POLYETHYLENE GLYCOL 3350 17 GM PACKET. PO ×2 (12:47→22:03)
[2017-10-28] MEDS: LUBIPROSTONE 8 MCG CAPSULE PO ×2 (12:48→17:00)
[2017-10-28] MEDS: METOPROLOL SUCC 24HR ER 50 MG TAB.ER.24H. PO (12:49)
[2017-10-28] MEDS ORDERED: POLYETHYLENE GLYCOL 3350 17 GM PACKET. PO (14:15)
[2017-10-28] MEDS: ATORVASTATIN CALCIUM 20 MG TABLET PO (22:03)
[2017-10-29] MEDS: LEVOTHYROXINE 88 MCG TABLET PO (06:08)
[2017-10-29] MEDS: LUBIPROSTONE 8 MCG CAPSULE PO ×2 (09:26→15:00)
[2017-10-29] MEDS: ASPIRIN ENTERIC COATED 81 MG TABLET.DR. PO (09:26)
[2017-10-29] MEDS: POLYETHYLENE GLYCOL 3350 17 GM PACKET. PO ×2 (09:27→20:22)
[2017-10-29] MEDS: METOPROLOL SUCC 24HR ER 50 MG TAB.ER.24H. PO (09:27)
[2017-10-29 10:37] LABS: ANION GAP 6 (6-14); BLOOD UREA NITROGEN 26 mg/dL (8-26); CALCIUM 8.8 mg/dL (8.5-10.1); CARBON DIOXIDE 29 mmol/L (21-32); CHLORIDE 105 mmol/L (98-107); CREATININE 1.4 mg/dL (0.7-1.3); GFR 48.9; GLUCOSE 112 mg/dL (70-99); POTASSIUM 4.7 mmol/L (3.5-5.1); SODIUM 140 mmol/L (136-145)
[2017-10-29] MEDS: BISACODYL 5 MG TABLET.DR. PO (15:00)
[2017-10-29] MEDS: ATORVASTATIN CALCIUM 20 MG TABLET PO (20:22)
[2017-10-29] MEDS: LISINOPRIL 5 MG TABLET. PO (20:23)
[2017-10-29] MEDS: ACETAMINOPHEN 500 MG TABLET PO (20:23)
[2017-10-30] MEDS: LEVOTHYROXINE 88 MCG TABLET PO (06:17)
[2017-10-30] MEDS: LUBIPROSTONE 8 MCG CAPSULE PO ×2 (08:00→17:37)
[2017-10-30] MEDS: POLYETHYLENE GLYCOL 3350 17 GM PACKET. PO ×2 (09:00→19:51)
[2017-10-30] MEDS: ASPIRIN ENTERIC COATED 81 MG TABLET.DR. PO (09:32)
[2017-10-30] MEDS: METOPROLOL SUCC 24HR ER 50 MG TAB.ER.24H. PO (09:32)
[2017-10-30 12:09] LABS: ANION GAP 7 (6-14); BLOOD UREA NITROGEN 25 mg/dL (8-26); CALCIUM 8.6 mg/dL (8.5-10.1); CARBON DIOXIDE 27 mmol/L (21-32); CHLORIDE 105 mmol/L (98-107); CREATININE 1.5 mg/dL (0.7-1.3); GFR 45.1; GLUCOSE 76 mg/dL (70-99); POTASSIUM 4.4 mmol/L (3.5-5.1); SODIUM 139 mmol/L (136-145)
[2017-10-30 12:10] LABS: MAGNESIUM 2.2 mg/dL (1.8-2.4)
[2017-10-30] MEDS: PEG 3350/NA SULF,BICARB,CL/KCL 4,000 ML SOLUTION. PO (13:56)
[2017-10-30] MEDS: AMIODARONE 150 MG in IV DEXTROSE 5% 100 ML IV (18:12)
[2017-10-30] MEDS: AMIODARONE 900 MG in IV DEXTROSE 5% 500 ML IV (18:42)
[2017-10-30] MEDS: ATORVASTATIN CALCIUM 20 MG TABLET PO (19:50)
[2017-10-30] MEDS: LISINOPRIL 5 MG TABLET. PO (19:50)
[2017-10-31] MEDS: LEVOTHYROXINE 88 MCG TABLET PO ×2 (04:42→14:11)
[2017-10-31] MEDS: LUBIPROSTONE 8 MCG CAPSULE PO (08:00)
[2017-10-31] MEDS: AMIODARONE HCL 200 MG TABLET. PO (08:13)
[2017-10-31] MEDS: POLYETHYLENE GLYCOL 3350 17 GM PACKET. PO (09:00)
[2017-10-31] MEDS: IV RINGERS,LACTATED 1000ML 1,000 ML IV (11:23)
[2017-10-31] MEDS ORDERED: LIDOCAINE 1% PF 2 ML VIAL. ID (11:30)
[2017-10-31] MEDS ORDERED: fentaNYL PF VIAL 100 MCG/2 ML VIAL IV ×2 (11:30)
[2017-10-31] MEDS ORDERED: MIDAZOLAM HCL/PF 2 MG/2 ML VIAL. IV (11:30)
[2017-10-31] MEDS ORDERED: PROPOFOL 20 ML IV (11:51)
[2017-10-31] MEDS: ASPIRIN ENTERIC COATED 81 MG TABLET.DR. PO (14:10)
[2017-10-31] MEDS: METOPROLOL SUCC 24HR ER 50 MG TAB.ER.24H. PO (14:11)
== END 2017-10-31 15:35 | disposition home or self-care (01) | DRG 308 ==
LOC: 2 SOUTH 15:23
PROC: 0DBH8ZZ Excision of Cecum, Via Natural or Artificial Opening Endoscopic (ICD-10-PCS; principal; 2017-10-31 12:00)
PROC: 0DBN8ZZ Excision of Sigmoid Colon, Via Natural or Artificial Opening Endoscopic (ICD-10-PCS; 2017-10-31 12:00)
PROC: 4B02XTZ Measurement of Cardiac Defibrillator, External Approach (ICD-10-PCS; 2017-10-31 12:00)
DX: I47.1 Supraventricular tachycardia (principal); N17.1 Acute kidney failure with acute cortical necrosis; I47.2 Ventricular tachycardia; N17.9 Acute kidney failure, unspecified; I42.9 Cardiomyopathy, unspecified; I50.9 Heart failure, unspecified; I95.1 Orthostatic hypotension; E78.5 Hyperlipidemia, unspecified; E89.0 Postprocedural hypothyroidism; F17.210 Nicotine dependence, cigarettes, uncomplicated; I11.0 Hypertensive heart disease with heart failure; I25.10 Atherosclerotic heart disease of native coronary artery without angina pectoris; I48.0 Paroxysmal atrial fibrillation; I71.4 Abdominal aortic aneurysm, without rupture; I72.3 Aneurysm of iliac artery; I73.9 Peripheral vascular disease, unspecified; I77.1 Stricture of artery; J98.4 Other disorders of lung; K59.00 Constipation, unspecified; K62.1 Rectal polyp; Z79.01 Long term (current) use of anticoagulants; Z82.49 Family history of ischemic heart disease and other diseases of the circulatory system; Z85.818 Personal history of malignant neoplasm of other sites of lip, oral cavity, and pharynx; Z95.810 Presence of automatic (implantable) cardiac defibrillator; Z98.49 Cataract extraction status, unspecified eye
CPT/HCPCS: 36415; 45380; 45385; 71045; 74018; 76770; 80048; 80053; 81001; 83735; 84443; 85025; 93005; 93308; 93320; 93325; 93975; J0282; J2704; J7120

== ENCOUNTER 2017-11-28 12:26 | Day surgery (SDC) | payer MEDICARE ==
[~2017-11-28 12:26] MED LIST changes: -ASPI-630 PO; -LEVO88TA4 PO; +LIDOCAINE 1% PF 2 ML VIAL. ID; +MORPHINE SULFATE 2 MG/ML DISP.SYRIN. IV; +ONDANSETRON PF 4 MG/2 ML VIAL. IV; -OXYC-323 PO; +PROCHLORPERAZINE 10 MG/2 ML VIAL. IV; -[UNRECOGNIZED DRUG - OTHER] PO; +fentaNYL PF VIAL 100 MCG/2 ML VIAL IV
[2017-11-28] MEDS: IV RINGERS,LACTATED 1000ML 1,000 ML IV (13:16)
[2017-11-28] MEDS ORDERED: fentaNYL PF VIAL 250 MCG/5 ML VIAL (13:57)
[2017-11-28] MEDS ORDERED: ROCURONIUM 50 MG/5 ML VIAL. (13:57)
[2017-11-28] MEDS: BUPIVACAINE-EPI 0.25%-1:200000 50 ML VIAL. (14:20)
[2017-11-28] MEDS ORDERED: LIDOCAINE 2% PF Vial for OR 5 ML VIAL. (14:40)
[2017-11-28] MEDS ORDERED: DEXAMETHASONE SOD PHOS 20 MG/5 ML VIAL. (14:40)
[2017-11-28] MEDS ORDERED: ONDANSETRON PF 4 MG/2 ML VIAL. (14:40)
[2017-11-28] MEDS ORDERED: PROPOFOL 20 ML IV (14:40)
[2017-11-28] MEDS ORDERED: SEVOFLURANE 31 TO 60 MINUTES. IH (14:55)
[2017-11-28] MEDS: hydrALAZINE 20 MG/ML VIAL. IVP (15:55)
[2017-11-28] MEDS ORDERED: HYDROcodone/APAP 5/325MG 1 TAB TABLET (16:02)
[2017-11-28] MEDS: HYDROcodone/APAP 5/325MG 1 TAB TABLET PO (16:13)
== END 2017-11-28 16:55 | disposition home or self-care (01) ==
LOC: SURG 12:26
DX: K41.90 Unilateral femoral hernia, without obstruction or gangrene, not specified as recurrent (principal); Z79.899 Other long term (current) drug therapy; Z79.01 Long term (current) use of anticoagulants; Z85.850 Personal history of malignant neoplasm of thyroid; Z95.810 Presence of automatic (implantable) cardiac defibrillator; I25.10 Atherosclerotic heart disease of native coronary artery without angina pectoris; Z90.79 Acquired absence of other genital organ(s); Z98.890 Other specified postprocedural states; Z98.42 Cataract extraction status, left eye; Z98.41 Cataract extraction status, right eye; Z96.1 Presence of intraocular lens; E89.0 Postprocedural hypothyroidism; I11.0 Hypertensive heart disease with heart failure; I50.9 Heart failure, unspecified; I42.9 Cardiomyopathy, unspecified; Z72.89 Other problems related to lifestyle; F17.210 Nicotine dependence, cigarettes, uncomplicated
CPT/HCPCS: 49550; A7015; C1781; J0360; J0690; J1100; J2001; J2405; J2704; J3010; J7120

== ENCOUNTER 2018-11-09 12:51 | Inpatient (IN) | payer MEDICARE ==
[~2018-11-09] VITALS: Ht 170.2 cm; Wt 68.1 kg
[~2018-11-09 12:51] MED LIST changes: +AMIO200T4 PO; +APIX2.5T PO; +APIX5TAB PO; +ASPI-630 PO; +ATOR20TA58 PO; +FURO-68 PO; +FURO40TA4 PO; +HYDR-3164 PO; +LEVO88TA4 PO; -LIDOCAINE 1% PF 2 ML VIAL. ID; +LISI-338 PO; +METO25TA4 PO; +METO50TA29 PO; -MORPHINE SULFATE 2 MG/ML DISP.SYRIN. IV; -ONDANSETRON PF 4 MG/2 ML VIAL. IV; +OXYC1TAB15 PO; -PROCHLORPERAZINE 10 MG/2 ML VIAL. IV; +[UNRECOGNIZED DRUG - OTHER] PO; -fentaNYL PF VIAL 100 MCG/2 ML VIAL IV
[2018-11-09] MEDS ORDERED: IV NORMAL SALINE 1000ML BAG 1,000 ML IV SCH (13:15)
[2018-11-09 13:53] LABS: BASO # 0.1 x10^3/uL (0.0-0.2); BASO % 1 % (0-3); CALCIUM 9.1 mg/dL (8.5-10.1); CREATININE 1.7 mg/dL (0.7-1.3); EOS # 0.2 x10^3/uL (0.0-0.7); EOS % 1 % (0-3); HEMATOCRIT 39.3 % (39.0-53.0); HEMOGLOBIN 12.8 g/dL (13.0-17.5); LYMPH # 1.5 x10^3/uL (1.0-4.8); LYMPH % 12 % (24-48); MEAN CORPUSCULAR HEMOGLOBIN 29 pg (25-35); MEAN CORPUSCULAR HGB CONC 33 g/dL (31-37); MEAN CORPUSCULAR VOLUME 90 fL (79-100); MONO # 0.7 x10^3/uL (0.0-1.1); MONO % 6 % (0-9); NEUT # 9.7 x10^3uL (1.8-7.7); NEUT % 80 % (31-73); PLATELET COUNT 248 x10^3/uL (140-400); RED BLOOD COUNT 4.36 x10^6/uL (4.30-5.70); RED CELL DISTRIBUTION WIDTH 17.2 % (11.5-14.5); WHITE BLOOD COUNT 12.2 x10^3/uL (4.0-11.0)
[2018-11-09 13:59] LABS: ALBUMIN/GLOBULIN RATIO 0.8 (1.0-1.7); MAGNESIUM 2.1 mg/dL (1.8-2.4); TOTAL BILIRUBIN 0.3 mg/dL (0.2-1.0)
[2018-11-09] MEDS ORDERED: DIPHTH,PERTUSS(ACELL),TET TOX 0.5 ML DISP.SYRIN. VAX IM ONE (14:00)
[2018-11-09 14:02] LABS: PROTHROMBIN TIME PATIENT 13.3 SEC (11.7-14.0)
--- NOTE | 2018-11-09 14:09 | RAD ---
CT scan of the head without contrast 11/09/2018 Clinical History: Fall with head trauma. Technique: Unenhanced, contiguous, 5 mm axial sections were obtained through the head. One or more of the following individualized dose reduction techniques were utilized for this study: 1. Automated exposure control. 2. Adjustment of the mA and/or kV according to patient size. 3. Use of iterative reconstruction technique. Findings: There is generalized parenchymal atrophy. Areas of decreased attenuation are seen within the periventricular and subcortical white matter of both cerebral hemispheres consistent with areas of small vessel ischemic disease. No acute parenchymal abnormality is seen. No extra-axial fluid collection is noted. No skull fracture is seen. Impression: No acute intracranial abnormality is seen. CT scan of the cervical spine without contrast 11/09/2018 Clinical history: Fall with neck injury. Technique: Unenhanced, contiguous, 0.625 mm axial sections were obtained through the cervical spine. Axial, coronal and sagittal reconstructed images were obtained. One or more of the following individualized dose reduction techniques were utilized for this study: 1. Automated exposure control. 2. Adjustment of the mA and/or kV according to patient size. 3. Use of iterative reconstruction technique. Findings: Sagittal and coronal reconstructed images demonstrate mild lateral curvature of the cervical spine, convex to the left. There is straightening of the normal cervical lordosis. Degenerative changes consisting of disc space narrowing, vertebral endplate sclerosis and mild anterior and posterior vertebral body osteophyte formation are seen involving the C5-6 and C6-7 disc spaces. No fracture or subluxation of the cervical vertebrae seen. Degenerative changes are seen involving the uncovertebral and facet joints throughout the cervical disc spaces. Atherosclerotic calcification is seen in the region carotid bifurcations. Areas of apical pleural thickening and scarring are seen involving both upper lobes. Impression: No fracture or subluxation of the cervical vertebra is identified. Electronically signed by: Desmond Moser MD (11/09/2018 2:06 PM) [facility]
--- NOTE | 2018-11-09 14:13 | RAD ---
CT scan of the lumbar spine without contrast 11/09/2018 CLINICAL HISTORY: Fall with low back pain. TECHNIQUE: Unenhanced contiguous, 0.625 mm axial sections were obtained through the lumbar spine. 3 mm reconstructed sagittal, axial and coronal images were obtained. One or more of the following individualized dose reduction techniques were utilized for this study: 1. Automated exposure control. 2. Adjustment of the mA and/or kV according to patient size. 3. Use of iterative reconstruction technique. FINDINGS: Sagittal and coronal reconstructed images demonstrate diffuse osteopenia of the visualized bony structures. Mild lateral curvature of the lumbar spine is seen convex to the left. Degenerative changes are seen throughout the lower thoracic and throughout the lumbar disc spaces consisting of vertebral endplate sclerosis and mild to moderate anterior vertebral body osteophyte formation. Atherosclerotic calcification of the abdominal aorta and its branches is noted. The abdominal aorta is ectatic and is not entirely included on this study. An acute comminuted fracture of the T12 vertebral body is seen. This vertebral body has lost approximately 10 percent of its normal height. No retropulsion of bone fragments into the central spinal canal is seen. An acute compression fracture of the lumbar vertebrae is noted. Degenerative changes are seen involving the facet joints throughout the lumbar disc spaces. IMPRESSION: An acute comminuted fracture is seen involving the superior endplate of the T12 vertebral body. No retropulsion of bone fragments into the central spinal canal is seen. Electronically signed by: Desmond Moser MD (11/09/2018 2:10 PM) [facility]
--- NOTE | 2018-11-09 14:48 | RAD ---
AP portable chest radiograph 11/09/2018 Clinical History: Fall. Chest pain. Two AP semi erect portable digital radiographs of the chest were obtained. Comparison study is dated 10/27/2017. A pacemaker is unchanged position. The cardiac silhouette is normal in size. The thoracic aorta is mildly tortuous. Atherosclerotic calcification thoracic aorta is seen. No acute pulmonary infiltrate is noted. No pleural effusion or pneumothorax is seen. The osseous structures are grossly intact. Impression: No acute abnormality is seen. Electronically signed by: Desmond Moser MD (11/09/2018 2:45 PM) [facility]
--- NOTE | 2018-11-09 14:49 | RAD ---
AP pelvis radiograph 11/09/2018 CLINICAL HISTORY: Fall with pelvic pain. An AP digital radiograph of the pelvis to include both hips was obtained. There is diffuse osteopenia of the visualized bony structures. No pelvic bone fracture is seen. No fracture or dislocation of either hip is noted. Degenerative changes are seen involving the lower lumbar spine, both SI joints and both hips. IMPRESSION: No pelvic bone fracture is seen. Electronically signed by: Desmond Moser MD (11/09/2018 2:46 PM) [facility]
--- NOTE | 2018-11-09 14:52 | RAD ---
4 view left knee radiographs 11/09/2018 CLINICAL HISTORY: Fall with injury to the left knee. AP, lateral and oblique along with sunrise digital radiographs of the left knee were obtained. No fracture or dislocation of the left knee is seen. Moderate to severe degenerative changes are seen involving all 3 compartments of the left knee. There is a small moderate-sized left suprapatellar joint effusion. Atherosclerotic calcification of the left popliteal artery is noted. IMPRESSION: No fracture or dislocation of the left knee is seen. Electronically signed by: Desmond Moser MD (11/09/2018 2:49 PM) [facility]
[2018-11-09] MEDS ORDERED: fentaNYL PF VIAL 100 MCG/2 ML VIAL IV ONE (15:00)
[2018-11-09] MEDS ORDERED: KETOROLAC 30 MG/ML VIAL. IV ONE (15:00)
--- NOTE | 2018-11-09 15:39 | PHYS DOC ---
Past Medical History Past Medical History: High Cholesterol, Hypertension, Hypothyroid, Other Additional Past Medical Histor: colon issues Past Surgical History: Pacemaker Alcohol Use: None Drug Use: None Adult General Chief Complaint Chief Complaint: MECHANICAL FALL HPI HPI Patient is a 78 year old male who presents with complaining of left knee pain after a fall. Patient states he had a fall at 6:30 today at his home because he felt a sudden body collapse and had a fall and injured his left knee and was not able to get up or bearing weight. Patient denies loss of consciousness and focal neurodeficit. Patient finally was able to call his son after 4 hours and brought him daily to ER. Patient rated his pain 7/10 and denies chest pain, shortness of breath, focal neuro deficit, fever and chills. Patient complaining of pain on his back and left knee. Patient is not up-to-date with tetanus immunization. Review of Systems Review of Systems Constitutional: Denies fever or chills [] Eyes: Denies change in visual acuity, redness, or eye pain [] HENT: Denies nasal congestion or sore throat [] Respiratory: Denies cough or shortness of breath [] Cardiovascular: No additional information not addressed in HPI [] GI: Denies abdominal pain, nausea, vomiting, bloody stools or diarrhea [] : Denies dysuria or hematuria [] Musculoskeletal: Reports back pain or joint pain Integument: Denies rash or skin lesions [] Neurologic: Denies headache, focal weakness or sensory changes [] Endocrine: Denies polyuria or polydipsia [] All other systems were reviewed and found to be within normal limits, except as documented in this note. Current Medications Current Medications Current Medications Medications (Trade) Dose Ordered Sig/Adarsh Start Time Stop Time Status Last Admin Dose Admin Diphtheria/ Tetanus/Acell Pertussis (Boostrix) 0.5 ml ONCE ONCE 11/09/18 14:00 11/09/18 14:02 DC 11/09/18 15:04 0.5 ML Fentanyl Citrate (Fentanyl 2ml Vial) 50 mcg 1X ONCE 11/09/18 15:00 11/09/18 15:01 DC 11/09/18 15:04 50 MCG Ketorolac Tromethamine (Toradol 30mg Vial) 30 mg 1X ONCE 11/09/18 15:00 11/09/18 15:00 DC Sodium Chloride 1,000 ml @ 1,000 mls/hr Q1H 11/09/18 13:15 11/09/18 14:14 DC Allergies Allergies Allergies Coded Allergies Type Severity Reaction Last Updated Verified No Known Drug Allergies 11/28/17 No Physical Exam Physical Exam Constitutional: Well developed, well nourished, mild distress, non-toxic appearance. [] HENT: Normocephalic, right forehead abrasion Eyes: PERRLA, EOMI, conjunctiva normal, no discharge. [] Neck: Normal range of motion, no tenderness, supple, no stridor. [] Cardiovascular: Tachycardia, no murmur [] Lungs & Thorax: Bilateral breath sounds clear to auscultation [] Abdomen: Bowel sounds normal, soft, no tenderness, no masses, no pulsatile masses. [] Skin: Warm, dry, no erythema, no rash. [] Back: Lower thoracic midline tenderness, no CVA tenderness. [] Extremities: Left knee with moderate edema and limited range of motion with tenderness in proximal part of knee, no neurovascular deficit Neurologic: Alert and oriented X 3, normal motor function, normal sensory function, no focal deficits noted. [] Psychologic: Affect normal, judgement normal, mood normal. [] Current Patient Data Vital Signs Vital Signs Date Time Temp Pulse Resp B/P (MAP) Pulse Ox O2 Delivery O2 Flow Rate FiO2 11/09/18 15:00 92 24 95 11/09/18 13:14 98.0 95/58 (70) Room Air 98.0 Lab Values Laboratory Tests Test 11/09/18 13:07 11/09/18 13:20 11/09/18 13:22 White Blood Count 12.2 x10^3/uL (4.0-11.0) H Red Blood Count 4.36 x10^6/uL (4.30-5.70) Hemoglobin 12.8 g/dL (13.0-17.5) L Hematocrit 39.3 % (39.0-53.0) Mean Corpuscular Volume 90 fL (79-100) Mean Corpuscular Hemoglobin 29 pg (25-35) Mean Corpuscular Hemoglobin Concent 33 g/dL (31-37) Red Cell Distribution Width 17.2 % (11.5-14.5) H Platelet Count 248 x10^3/uL (140-400) Neutrophils (%) (Auto) 80 % (31-73) H Lymphocytes (%) (Auto) 12 % (24-48) L Monocytes (%) (Auto) 6 % (0-9) Eosinophils (%) (Auto) 1 % (0-3) Basophils (%) (Auto) 1 % (0-3) Neutrophils # (Auto) 9.7 x10^3uL (1.8-7.7) H Lymphocytes # (Auto) 1.5 x10^3/uL (1.0-4.8) Monocytes # (Auto) 0.7 x10^3/uL (0.0-1.1) Eosinophils # (Auto) 0.2 x10^3/uL (0.0-0.7) Basophils # (Auto) 0.1 x10^3/uL (0.0-0.2) Prothrombin Time 13.3 SEC (11.7-14.0) Prothrombin Time INR 1.0 (0.8-1.1) Sodium Level 138 mmol/L (136-145) Potassium Level 4.0 mmol/L (3.5-5.1) Chloride Level 101 mmol/L (98-107) Carbon Dioxide Level 27 mmol/L (21-32) Anion Gap 10 (6-14) Blood Urea Nitrogen 21 mg/dL (8-26) Creatinine 1.7 mg/dL (0.7-1.3) H Estimated GFR (Cockcroft-Gault) 39.0 BUN/Creatinine Ratio 12 (6-20) Glucose Level 82 mg/dL (70-99) Calcium Level 9.1 mg/dL (8.5-10.1) Magnesium Level 2.1 mg/dL (1.8-2.4) Total Bilirubin 0.3 mg/dL (0.2-1.0) Aspartate Amino Transferase (AST) 14 U/L (15-37) L Alanine Aminotransferase (ALT) 13 U/L (16-63) L Alkaline Phosphatase 97 U/L (46-116) Creatine Kinase 44 U/L (39-308) Troponin I Quantitative < 0.017 ng/mL (0.000-0.055) VV-Cla-G-Type Natriuretic Peptide 84558 pg/mL (0-449) H Total Protein 7.0 g/dL (6.4-8.2) Albumin 3.0 g/dL (3.4-5.0) L Albumin/Globulin Ratio 0.8 (1.0-1.7) L Lipase 65 U/L (73-393) L Lactic Acid Level 0.9 mmol/L (0.4-2.0) Glucose (Fingerstick) 78 mg/dL (70-99) Laboratory Tests 11/09/18 13:07 Laboratory Tests 11/09/18 13:07 EKG EKG EKG was interpreted by me. EKG at 1311 showed sinus tachycardia at rate of 103, left atrial abnormality, abnormal left axis deviation, left anterior fascicular block, LVH, nonspecific T abnormalities in lateral leads, no acute ST and T-wave abnormalities. Radiology/Procedures Radiology/Procedures [address] [address] IMAGING REPORT Signed PATIENT: THI VICTOR ACCOUNT: [id number] : 1940 LOCATION: ER AGE: 78 SEX: M EXAM STATUS: REG ER ORD. PHYSICIAN: ASHLEY PEDRAZA MD REASON: fall PROCEDURE: PELVIS AP pelvis radiograph 11/09/2018 CLINICAL HISTORY: Fall with pelvic pain. An AP digital radiograph of the pelvis to include both hips was obtained. There is diffuse osteopenia of the visualized bony structures. No pelvic bone fracture is seen. No fracture or dislocation of either hip is noted. Degenerative changes are seen involving the lower lumbar spine, both SI joints and both hips. IMPRESSION: No pelvic bone fracture is seen. Electronically signed by: Desmond Moser MD (11/09/2018 2:46 PM) [facility] DICTATED and SIGNED BY: DESMOND MOSER MD DATE: 11/09/[address] [address] IMAGING REPORT Signed PATIENT: THI VICTOR ACCOUNT: [id number] : 1940 LOCATION: ER AGE: 78 SEX: M EXAM STATUS: REG ER ORD. PHYSICIAN: ASHLEY PEDRAZA MD REASON: fall PROCEDURE: CT LUMBAR SPINE WO CONTRAST CT scan of the lumbar spine without contrast 11/09/2018 CLINICAL HISTORY: Fall with low back pain. TECHNIQUE: Unenhanced contiguous, 0.625 mm axial sections were obtained through the lumbar spine. 3 mm reconstructed sagittal, axial and coronal images were obtained. One or more of the following individualized dose reduction techniques were utilized for this study: 1. Automated exposure control. 2. Adjustment of the mA and/or kV according to patient size. 3. Use of iterative reconstruction technique. FINDINGS: Sagittal and coronal reconstructed images demonstrate diffuse osteopenia of the visualized bony structures. Mild lateral curvature of the lumbar spine is seen convex to the left. Degenerative changes are seen throughout the lower thoracic and throughout the lumbar disc spaces consisting of vertebral endplate sclerosis and mild to moderate anterior vertebral body osteophyte formation. Atherosclerotic calcification of the abdominal aorta and its branches is noted. The abdominal aorta is ectatic and is not entirely included on this study. An acute comminuted fracture of the T12 vertebral body is seen. This vertebral body has lost approximately 10 percent of its normal height. No retropulsion of bone fragments into the central spinal canal is seen. An acute compression fracture of the lumbar vertebrae is noted. Degenerative changes are seen involving the facet joints throughout the lumbar disc spaces. IMPRESSION: An acute comminuted fracture is seen involving the superior endplate of the T12 vertebral body. No retropulsion of bone fragments into the central spinal canal is seen. Electronically signed by: Desmond Moser MD (11/09/2018 2:10 PM) [facility] DICTATED and SIGNED BY: DESMOND MOSER MD DATE: 11/09/18 1410 [facility] [address] [place] [address] IMAGING REPORT Signed PATIENT: THI VICTOR ACCOUNT: [id number] : 1940 LOCATION: ER AGE: 78 SEX: M EXAM STATUS: REG ER ORD. PHYSICIAN: ASHLEY PEDRAZA MD REASON: fall PROCEDURE: KNEE LEFT 4V 4 view left knee radiographs 11/09/2018 CLINICAL HISTORY: Fall with injury to the left knee. AP, lateral and oblique along with sunrise digital radiographs of the left knee were obtained. No fracture or dislocation of the left knee is seen. Moderate to severe degenerative changes are seen involving all 3 compartments of the left knee. There is a small moderate-sized left suprapatellar joint effusion. Atherosclerotic calcification of the left popliteal artery is noted. IMPRESSION: No fracture or dislocation of the left knee is seen. Electronically signed by: Desmond Moser MD (11/09/2018 2:49 PM) [facility] DICTATED and SIGNED BY: DESMOND MOSER MD DATE: 11/09/18 1449 [facility] [address] [place] [address] IMAGING REPORT Signed PATIENT: THI VICTOR ACCOUNT: [id number] : 1940 LOCATION: ER AGE: 78 SEX: M EXAM STATUS: REG ER ORD. PHYSICIAN: ASHLEY PEDRAZA MD REASON: fall PROCEDURE: CT HEAD AND CERVICAL SPINE WO CT scan of the head without contrast 11/09/2018 Clinical History: Fall with head trauma. Technique: Unenhanced, contiguous, 5 mm axial sections were obtained through the head. One or more of the following individualized dose reduction techniques were utilized for this study: 1. Automated exposure control. 2. Adjustment of the mA and/or kV according to patient size. 3. Use of iterative reconstruction technique. Findings: There is generalized parenchymal atrophy. Areas of decreased attenuation are seen within the periventricular and subcortical white matter of both cerebral hemispheres consistent with areas of small vessel ischemic disease. No acute parenchymal abnormality is seen. No extra-axial fluid collection is noted. No skull fracture is seen. Impression: No acute intracranial abnormality is seen. CT scan of the cervical spine without contrast 11/09/2018 Clinical history: Fall with neck injury. Technique: Unenhanced, contiguous, 0.625 mm axial sections were obtained through the cervical spine. Axial, coronal and sagittal reconstructed images were obtained. One or more of the following individualized dose reduction techniques were utilized for this study: 1. Automated exposure control. 2. Adjustment of the mA and/or kV according to patient size. 3. Use of iterative reconstruction technique. Findings: Sagittal and coronal reconstructed images demonstrate mild lateral curvature of the cervical spine, convex to the left. There is straightening of the normal cervical lordosis. Degenerative changes consisting of disc space narrowing, vertebral endplate sclerosis and mild anterior and posterior vertebral body osteophyte formation are seen involving the C5-6 and C6-7 disc spaces. No fracture or subluxation of the cervical vertebrae seen. Degenerative changes are seen involving the uncovertebral and facet joints throughout the cervical disc spaces. Atherosclerotic calcification is seen in the region carotid bifurcations. Areas of apical pleural thickening and scarring are seen involving both upper lobes. Impression: No fracture or subluxation of the cervical vertebra is identified. Electronically signed by: Desmond Moser MD (11/09/2018 2:06 PM) [facility] DICTATED and SIGNED BY: DESMOND MOSER MD DATE: 11/09/[address] [id number] IMAGING REPORT Signed PATIENT: THI VICTOR ACCOUNT: [id number] : 1940 LOCATION: AGE: 78 SEX: M EXAM STATUS: REG ER ORD. PHYSICIAN: ASHLEY PEDRAZA MD REASON: fall PROCEDURE: PORTABLE CHEST 1V AP portable chest radiograph 11/09/2018 Clinical History: Fall. Chest pain. Two AP semi erect portable digital radiographs of the chest were obtained. Comparison study is dated 10/27/2017. A pacemaker is unchanged position. The cardiac silhouette is normal in size. The thoracic aorta is mildly tortuous. Atherosclerotic calcification thoracic aorta is seen. No acute pulmonary infiltrate is noted. No pleural effusion or pneumothorax is seen. The osseous structures are grossly intact. Impression: No acute abnormality is seen. Electronically signed by: Desmond Moser MD (11/09/2018 2:45 PM) [facility] DICTATED and SIGNED BY: DESMOND MOSER MD DATE: 11/09/18 [id number] [place], [place] [id number] IMAGING REPORT Signed PATIENT: THI VICTOR ACCOUNT: [id number] : 1940 LOCATION: [address] [place] [address] AGE: 78 SEX: M EXAM STATUS: ADM IN ORD. PHYSICIAN: ASHLEY PEDRAZA MD REASON: left knee injury, unremarkable x-ray, unable to bend knee PROCEDURE: CT LOWER EXTREMITY WO LEFT EXAM: CT left knee without contrast DATE: 11/09/2018 3:18 PM COMPARISON: No prior INDICATION: NEGATIVE X RAY KNEE, UNABLE TO PUT WEIGHT, FALL TECHNIQUE: CT left knee was performed without IV contrast. Axial coronal and sagittal reformatted images were generated. PQRS compliance statement - One or more of the following individualized dose reduction techniques were utilized for this study: 1. Automated exposure control 2. Adjustment of the mA and/or kV according to patient size 3. Use of iterative reconstruction technique FINDINGS: There is no evidence for acute fracture or dislocation although evaluation is somewhat limited given the degree of marked osteopenia. Advanced left knee joint osteoarthritis with bulky tricompartmental osteophytes and medial compartment joint space narrowing. Small right knee joint effusion without lipohemarthrosis. 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 Vascular calcifications are seen. Small Cisneros's cyst with edema tracking inferiorly along the leg, possibly from recent partial rupture. IMPRESSION: 1. Within the constraints of osteopenia, no fracture is seen. 2. Small Cisneros's cyst with edema tracking inferiorly along the leg, possibly from recent rupture of the Cisneros's cyst. 3. 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 Electronically signed by: Eugene Brown MD (11/09/2018 4:28 PM) [facility] DICTATED and SIGNED BY: EUGENE BROWN MD DATE: 11/09/18 1628 Course & Med Decision Making Course & Med Decision Making Pertinent Labs and Imaging studies reviewed. (See chart for details) Evaluation of patient in ER showed 78-year-old male patient with a fall and injury to left knee and back. Patient had moderate edema and limited range of motion with unremarkable x-ray. Labs showed chronic CHF and renal insufficiency. Patient is at home by himself and unable to bearing weight. Plan to admit patient for possible rehabilitation placement. Patient requiring admission for further evaluation and treatment. Discussed with Dr. Stearns who is in agreement with admission. Discussed findings and plan with patient and family, who acknowledge understanding and agreement. Dragon Disclaimer Dragon Disclaimer This electronic medical record was generated, in whole or in part, using a voice recognition dictation system. Departure Departure Impression: Primary Impression: Thoracic spine fracture Additional Impressions: Frequent falls Strain of left knee Systolic CHF Chronic renal insufficiency Anemia Disposition: 09 ADMITTED INPATIENT (at 1516) Admitting Physician: Ana Laura Stearns (accepted admission at 1515) Condition: IMPROVED Referrals: ANA LAURA STEARNS MD (PCP) Problem Qualifiers Primary Impression: Thoracic spine fracture Encounter type: subsequent encounter Thoracic vertebra fracture level: T12 Fracture type: closed Fracture morphology: other fracture Fracture healing: with routine healing Qualified Codes: S22.088D - Other fracture of t11-T12 vertebra, subsequent encounter for fracture with routine healing Additional Impressions: Strain of left knee Encounter type: initial encounter Qualified Codes: S86.912A - Strain of unspecified muscle(s) and tendon(s) at lower leg level, left leg, initial encounter Systolic CHF Heart failure chronicity: chronic Qualified Codes: I50.22 - Chronic systolic (congestive) heart failure Chronic renal insufficiency Chronic kidney disease stage: unspecified stage Qualified Codes: N18.9 - Chronic kidney disease, unspecified Anemia Anemia type: unspecified type Qualified Codes: D64.9 - Anemia, unspecified ASHLEY PEDRAZA MD November 09, 2018 15:39
[2018-11-09] MEDS ORDERED: fentaNYL PF VIAL 100 MCG/2 ML VIAL IV PRN (16:00)
--- NOTE | 2018-11-09 16:31 | RAD ---
EXAM: CT left knee without contrast DATE: 11/09/2018 3:18 PM COMPARISON: No prior INDICATION: NEGATIVE X RAY KNEE, UNABLE TO PUT WEIGHT, FALL TECHNIQUE: CT left knee was performed without IV contrast. Axial coronal and sagittal reformatted images were generated. PQRS compliance statement - One or more of the following individualized dose reduction techniques were utilized for this study: 1. Automated exposure control 2. Adjustment of the mA and/or kV according to patient size 3. Use of iterative reconstruction technique FINDINGS: There is no evidence for acute fracture or dislocation although evaluation is somewhat limited given the degree of marked osteopenia. Advanced left knee joint osteoarthritis with bulky tricompartmental osteophytes and medial compartment joint space narrowing. Small right knee joint effusion without lipohemarthrosis. 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 Vascular calcifications are seen. Small Cisneros's cyst with edema tracking inferiorly along the leg, possibly from recent partial rupture. IMPRESSION: 1. Within the constraints of osteopenia, no fracture is seen. 2. Small Cisneros's cyst with edema tracking inferiorly along the leg, possibly from recent rupture of the Cisneros's cyst. 3. 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 Electronically signed by: Eugene Tavera MD (11/09/2018 4:28 PM) [facility]
[2018-11-09 16:45] VITALS: BP 169/83
[2018-11-09] MEDS ORDERED: TERA5CAP3 PO (18:40)
[2018-11-09] MEDS ORDERED: HYDROcodone/APAP 5/325MG 1 TAB TABLET PO PRN ×2 (18:45)
[2018-11-09 19:05] VITALS: BP 117/61
[2018-11-09 22:55] VITALS: BP 96/53
[2018-11-10] VITALS (9 sets, daily range): BP systolic 64–143; BP diastolic 41–75
[2018-11-10] MEDS: LEVOTHYROXINE 88 MCG TABLET PO SCH (05:39)
--- NOTE | 2018-11-10 06:25 | EKG ---
[facility] [address] [place] [address] Test Date: 2018-11-09 Test Time: 13:11:12 Pat Name: THI VICTOR Department: Room: Gender: M Yoke Presser: MELLO: 1940 Requested By: ASHLEY PEDRAZA Order Number: [id number] Reading MD: Measurements Intervals [place] Rate: 102 P: 46 WI: 174 QRS: -30 QRSD: 82 T: 63 QT: 354 QTc: 465 Interpretive Statements SINUS TACHYCARDIA LEFT ATRIAL ABNORMALITY ABNORMAL LEFT AXIS DEVIATION LEFT ANTERIOR FASCICULAR BLOCK CONSIDER LEFT VENTRICULAR HYPERTROPHY T ABNORMALITY IN HIGH LATERAL LEADS ABNORMAL ECG No previous ECG available for comparison
--- NOTE | 2018-11-10 06:34 | NUR ---
Pt has not voided. Bladder scan 248ml. Will continue to monitor.
--- NOTE | 2018-11-10 09:00 | PDOC2 ---
UROLOGY CONSULT Date of Consult Date of Consult DATE: 11/10/18 TIME: 08:52 Identification/Chief Complaint Chief Complaint Retention vs Incomplete emptying. Source Source: Caregiver, Patient History of Present Illness Reason for Visit: Pateint is an 78 year old male hospitalized for sudden weakness and complaints that he is "just collapsing" without any reason. Urology was consulted for his long standing complaints of BPH and being on Flomax, but Dr. Haro would like to D/C this if possible since it can sometimes cause dizziness. Pt currently thinks that he is empting his bladder well, with no dysuria/hematuria or flank pain. He also denies nocturia, or daytime frequency. He has been on Flomax on and off for about ten years and had a prostate "carve out" at this hospital about 15 years ago. He does not remember the name of the doctor and is not currently seeing a Urologist, but he is open to seeing one upon discharge. He has a history of "good times and bad times" with his prostate, urinary issues. In other words he will do fine for a while, go off the Flomax and then need to go back on it after a while. Dr. Haro has been managing his BPH; he is not sure when his last INNA was. Past Medical History Cardiovascular: CAD, CHF, HTN, SD, Hyperlipidemia, Valve insufficiency Pulmonary: No pertinent hx CENTRAL NERVOUS SYSTEM: Other GI: No pertinent hx Heme/Onc: Cancer Hepatobiliary: No pertinent hx Psych: No pertinent hx Rheumatologic: No pertinent hx Infectious disease: No pertinent hx Renal/: Benign prostatic enlarg., Other Endocrine: Hypothyroidism Past Surgical History Past Surgical History: Pacemaker, Cataract Removal, Tonsillectomy, Other Family History Family History: Heart Disease Social History ALCOHOL: none Drugs: None Lives: with Family Current Problem List Problems: (1) BPH (benign prostatic hyperplasia) Current Medications Current Medications Current Medications Acetaminophen/ Hydrocodone Bitart (Lortab 5/325) 1 tab PRN Q4HRS PRN PO PAIN; Start 11/09/18 at 18:45 Acetaminophen/ Hydrocodone Bitart (Lortab 5/325) 2 tab PRN Q4HRS PRN PO PAIN Last administered on 11/10/18at 02:54; Start 11/09/18 at 18:45 Amiodarone HCl (Cordarone) 200 mg DAILY PO ; Start 11/10/18 at 09:00 Diphtheria/ Tetanus/Acell Pertussis (Boostrix) 0.5 ml ONCE ONCE VAX IM Last administered on 11/09/18at 15:04; Start 11/09/18 at 14:00; Stop 11/09/18 at 14:02; Status DC Fentanyl Citrate (Fentanyl 2ml Vial) 50 mcg 1X ONCE IV Last administered on 11/09/18at 15:04; Start 11/09/18 at 15:00; Stop 11/09/18 at 15:01; Status DC Fentanyl Citrate (Fentanyl 2ml Vial) 50 mcg PRN Q4HRS PRN IV PAIN Last administered on 11/09/18at 16:09; Start 11/09/18 at 16:00; Stop 11/09/18 at 16:09; Status DC Ketorolac Tromethamine (Toradol 30mg Vial) 30 mg 1X ONCE IV ; Start 11/09/18 at 15:00; Stop 11/09/18 at 15:00; Status DC Levothyroxine Sodium (Synthroid) 88 mcg DAILY06 PO Last administered on 11/10/18at 05:39; Start 11/10/18 at 06:00 Sodium Chloride 1,000 ml @ 50 mls/hr Q20H IV ; Start 11/10/18 at 08:00 Sodium Chloride 1,000 ml @ 1,000 mls/hr Q1H IV ; Start 11/09/18 at 13:15; Stop 11/09/18 at 14:14; Status DC Allergies Allergies: Coded Allergies: No Known Drug Allergies (Unverified , 11/28/17) ROS Review Of Systems: CONSTITUTIONAL: No fever or chills EYES: No recent changes SKIN: No rash or itching CARDIOVASCULAR: No chest pain, syncope, palpitations, or edema RESPIRATORY: No SOB or cough GASTROINTESTINAL: No nausea, vomiting or abdominal pain NEUROLOGICAL: No headaches or weakness ENDOCRINE: No cold or heat intolerance GENITOURINARY: No urgency or frequency of urination MUSCULOSKELETAL: No back pain or joint pain LYMPHATICS: No enlarged lymph nodes PSYCHIATRIC: No anxiety or depression Physical Exam Physical Exam: General: Pleasant, no acute distress, well groomed Eyes: conjunctiva anicteric, eyes full range of motion ENT: moist oral mucosa, normal dentition Neck: Trachea midline, no masses Respiratory: unlabored breathing, not using accessory muscles, Back: No CVA pain bilaterally Abdomen: nontender, nondistended, no hepatosplenomegaly, no masses. PVR via bladder scan between 25 and 36 times three. Skin: no rashes or skin lesions on visualized skin Psych: normal mood, affect. Alert and oriented x 3. Vitals VITALS Vital Signs Date Time Temp Pulse Resp B/P (MAP) Pulse Ox O2 Delivery O2 Flow Rate FiO2 11/10/18 03:54 20 Room Air 11/10/18 02:50 98.7 90 114/57 (76) 92 98.7 Labs Labs Laboratory Tests Test 11/09/18 13:07 11/09/18 13:20 11/09/18 13:22 White Blood Count 12.2 x10^3/uL (4.0-11.0) Red Blood Count 4.36 x10^6/uL (4.30-5.70) Hemoglobin 12.8 g/dL (13.0-17.5) Hematocrit 39.3 % (39.0-53.0) Mean Corpuscular Volume 90 fL (79-100) Mean Corpuscular Hemoglobin 29 pg (25-35) Mean Corpuscular Hemoglobin Concent 33 g/dL (31-37) Red Cell Distribution Width 17.2 % (11.5-14.5) Platelet Count 248 x10^3/uL (140-400) Neutrophils (%) (Auto) 80 % (31-73) Lymphocytes (%) (Auto) 12 % (24-48) Monocytes (%) (Auto) 6 % (0-9) Eosinophils (%) (Auto) 1 % (0-3) Basophils (%) (Auto) 1 % (0-3) Neutrophils # (Auto) 9.7 x10^3uL (1.8-7.7) Lymphocytes # (Auto) 1.5 x10^3/uL (1.0-4.8) Monocytes # (Auto) 0.7 x10^3/uL (0.0-1.1) Eosinophils # (Auto) 0.2 x10^3/uL (0.0-0.7) Basophils # (Auto) 0.1 x10^3/uL (0.0-0.2) Prothrombin Time 13.3 SEC (11.7-14.0) Prothromb Time International Ratio 1.0 (0.8-1.1) Sodium Level 138 mmol/L (136-145) Potassium Level 4.0 mmol/L (3.5-5.1) Chloride Level 101 mmol/L (98-107) Carbon Dioxide Level 27 mmol/L (21-32) Anion Gap 10 (6-14) Blood Urea Nitrogen 21 mg/dL (8-26) Creatinine 1.7 mg/dL (0.7-1.3) Estimated GFR (Cockcroft-Gault) 39.0 BUN/Creatinine Ratio 12 (6-20) Glucose Level 82 mg/dL (70-99) Calcium Level 9.1 mg/dL (8.5-10.1) Magnesium Level 2.1 mg/dL (1.8-2.4) Total Bilirubin 0.3 mg/dL (0.2-1.0) Aspartate Amino Transf (AST/SGOT) 14 U/L (15-37) Alanine Aminotransferase (ALT/SGPT) 13 U/L (16-63) Alkaline Phosphatase 97 U/L (46-116) Creatine Kinase 44 U/L (39-308) Troponin I Quantitative < 0.017 ng/mL (0.000-0.055) UE-Mrk-V-Type Natriuretic Peptide 83696 pg/mL (0-449) Total Protein 7.0 g/dL (6.4-8.2) Albumin 3.0 g/dL (3.4-5.0) Albumin/Globulin Ratio 0.8 (1.0-1.7) Lipase 65 U/L (73-393) Lactic Acid Level 0.9 mmol/L (0.4-2.0) Glucose (Fingerstick) 78 mg/dL (70-99) Laboratory Tests Test 11/09/18 13:07 11/09/18 13:20 11/09/18 13:22 White Blood Count 12.2 x10^3/uL (4.0-11.0) Red Blood Count 4.36 x10^6/uL (4.30-5.70) Hemoglobin 12.8 g/dL (13.0-17.5) Hematocrit 39.3 % (39.0-53.0) Mean Corpuscular Volume 90 fL (79-100) Mean Corpuscular Hemoglobin 29 pg (25-35) Mean Corpuscular Hemoglobin Concent 33 g/dL (31-37) Red Cell Distribution Width 17.2 % (11.5-14.5) Platelet Count 248 x10^3/uL (140-400) Neutrophils (%) (Auto) 80 % (31-73) Lymphocytes (%) (Auto) 12 % (24-48) Monocytes (%) (Auto) 6 % (0-9) Eosinophils (%) (Auto) 1 % (0-3) Basophils (%) (Auto) 1 % (0-3) Neutrophils # (Auto) 9.7 x10^3uL (1.8-7.7) Lymphocytes # (Auto) 1.5 x10^3/uL (1.0-4.8) Monocytes # (Auto) 0.7 x10^3/uL (0.0-1.1) Eosinophils # (Auto) 0.2 x10^3/uL (0.0-0.7) Basophils # (Auto) 0.1 x10^3/uL (0.0-0.2) Prothrombin Time 13.3 SEC (11.7-14.0) Prothromb Time International Ratio 1.0 (0.8-1.1) Sodium Level 138 mmol/L (136-145) Potassium Level 4.0 mmol/L (3.5-5.1) Chloride Level 101 mmol/L (98-107) Carbon Dioxide Level 27 mmol/L (21-32) Anion Gap 10 (6-14) Blood Urea Nitrogen 21 mg/dL (8-26) Creatinine 1.7 mg/dL (0.7-1.3) Estimated GFR (Cockcroft-Gault) 39.0 BUN/Creatinine Ratio 12 (6-20) Glucose Level 82 mg/dL (70-99) Calcium Level 9.1 mg/dL (8.5-10.1) Magnesium Level 2.1 mg/dL (1.8-2.4) Total Bilirubin 0.3 mg/dL (0.2-1.0) Aspartate Amino Transf (AST/SGOT) 14 U/L (15-37) Alanine Aminotransferase (ALT/SGPT) 13 U/L (16-63) Alkaline Phosphatase 97 U/L (46-116) Creatine Kinase 44 U/L (39-308) Troponin I Quantitative < 0.017 ng/mL (0.000-0.055) YG-Nmp-W-Type Natriuretic Peptide 67493 pg/mL (0-449) Total Protein 7.0 g/dL (6.4-8.2) Albumin 3.0 g/dL (3.4-5.0) Albumin/Globulin Ratio 0.8 (1.0-1.7) Lipase 65 U/L (73-393) Lactic Acid Level 0.9 mmol/L (0.4-2.0) Glucose (Fingerstick) 78 mg/dL (70-99) Assessment/Plan Assessment/Plan PVR via bladder scan is 25-36 times four=No retention. His BPH is mild at this point. No need for Flomax. Pt would like to see Urologist as an outpatient, A follow up appointment has been arranged for him to see Dr. Moran of [facility] on 11/25/18 at 1020 am. Appointment card and new patient paperwork given to patient. All questions answered. JYOTI GARVIN APRN November 10, 2018 09:00
[2018-11-10] MEDS: AMIODARONE HCL 200 MG TABLET. PO SCH (09:33)
[2018-11-10] MEDS: IV 1/2 NORMAL SALINE 1,000 ML IV SCH (09:34)
--- NOTE | 2018-11-10 14:56 | NUR ---
SS following for discharge planning. SS reviewed pt chart. Pt is from home and is currently on room air. No discharge needs noted at this time. SS will continue to follow for discharge planning.
[2018-11-10] MEDS: MIDODRINE 5 MG TABLET PO SCH (17:03)
[2018-11-11] VITALS (9 sets, daily range): BP systolic 79–188; BP diastolic 43–81
[2018-11-11 04:23] LABS: CALCIUM 8.4 mg/dL (8.5-10.1); CREATININE 1.5 mg/dL (0.7-1.3); POTASSIUM 4.2 mmol/L (3.5-5.1)
[2018-11-11] MEDS: IV 1/2 NORMAL SALINE 1,000 ML IV SCH (06:49)
[2018-11-11] MEDS: LEVOTHYROXINE 88 MCG TABLET PO SCH (06:49)
[2018-11-11] MEDS: MIDODRINE 5 MG TABLET PO SCH ×2 (09:03→17:25)
[2018-11-11] MEDS: AMIODARONE HCL 200 MG TABLET. PO SCH (09:04)
--- NOTE | 2018-11-11 12:49 | NUR ---
SS following up with discharge planning. PT/OT evaluated pt and recommended usp unit. SS met with pt to discuss discharge planning and usp unit. Pt declined usp unit at this time, stating that he wants to speak with Dr. Stearns in the morning about his medications and if at that time he feels as if he needs it after his conversation with Dr. Stearns he will notify staff. Pt's RN notified.
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
[2018-11-12 03:04] VITALS: BP 130/61
[2018-11-12] MEDS: LEVOTHYROXINE 88 MCG TABLET PO SCH (06:35)
[2018-11-12 07:10] VITALS: BP 148/72
[2018-11-12 07:13] VITALS: BP 109/59
[2018-11-12 07:16] VITALS: BP 68/43
[2018-11-12] MEDS: MIDODRINE 5 MG TABLET PO SCH (09:13)
[2018-11-12] MEDS: AMIODARONE HCL 200 MG TABLET. PO SCH (09:14)
[2018-11-12 11:00] VITALS: BP 99/59
--- NOTE | 2018-11-12 12:55 | NUR ---
Discharge Note: CHERIE VICTOR [facility] Discharge instructions and discharge home medications reviewed with Patient and a copy given. All questions have been answered and understanding verbalized. Pt given abd binder and walker. Pt verbalized understanding. Physician gave patient prescriptiong day prior to DC. Pt wheeled out via wheelchair accompanied by son and hospital staff.
[2018-11-12] MEDS ORDERED: MIDO5TAB PO (13:02)
--- NOTE | 2018-11-12 22:05 | DS ---
DATE OF DISCHARGE: 11/12/2018 PRIMARY DIAGNOSES: ____, orthostatic hypotension, congestive heart failure with ischemic cardiomyopathy, tonsillar cancer, pacemaker status, hypothyroidism, T12 vertebral fracture and left knee sprain. CHIEF COMPLAINT AND HISTORY OF PRESENT ILLNESS: This 78-year-old white male was admitted to Emergency ____ fracture. Upon questioning it ____ several days prior to this and started ____ instructed to be taking his medicines for BPH which apparently he was still taking at the time of admission. SUMMARY OF STAY: The patient was admitted, his BPH meds were held. ____ some other way to treat his BPH symptoms ____. Today, he was asymptomatic with the same. He did have moderate ____ 4 times with voiding ____. Followup appointment with ____ was obtained. The patient's white count was slightly elevated at ____ [id number]. INR was within normal limits. ____. The patient ____ thankful that his symptoms were improved ____ on standing and ____, there was significant drop at the time of discharge and abdominal binder was added. Emergency was pushing for the same. DISPOSITION: The patient is discharged to home. Regular diet. Activity as tolerated. Office in 1 week. DISCHARGE MEDICATIONS: ____ amiodarone, Synthroid. ANA LAURA KRAMER MD DR: COLBY/agustín JOB#: [id number] / [id number]
== END 2018-11-12 12:33 | disposition home or self-care (01) | DRG 543 ==
LOC: ER 12:51 → 4 NORTH 15:04 → 2 SOUTH 17:09
PROVIDERS: ADMIT Family Medicine; ATTEND Family Medicine
DX: M80.88XA Other osteoporosis with current pathological fracture, vertebra(e), initial encounter for fracture (principal); I13.0 Hypertensive heart and chronic kidney disease with heart failure and stage 1 through stage 4 chronic kidney disease, or unspecified chronic kidney disease; I50.20 Unspecified systolic (congestive) heart failure; C09.9 Malignant neoplasm of tonsil, unspecified; D64.9 Anemia, unspecified; E78.00 Pure hypercholesterolemia, unspecified; E03.9 Hypothyroidism, unspecified; E78.5 Hyperlipidemia, unspecified; I25.10 Atherosclerotic heart disease of native coronary artery without angina pectoris; I25.5 Ischemic cardiomyopathy; I95.1 Orthostatic hypotension; M11.20 Other chondrocalcinosis, unspecified site; M71.20 Synovial cyst of popliteal space [Baker], unspecified knee; N18.9 Chronic kidney disease, unspecified; N40.0 Benign prostatic hyperplasia without lower urinary tract symptoms; R29.6 Repeated falls; S83.92XA Sprain of unspecified site of left knee, initial encounter; S86.912A Strain of unspecified muscle(s) and tendon(s) at lower leg level, left leg, initial encounter; Z95.0 Presence of cardiac pacemaker; Z87.891 Personal history of nicotine dependence; W18.39XA Other fall on same level, initial encounter; Y93.89 Activity, other specified; Y92.89 Other specified places as the place of occurrence of the external cause; Y99.8 Other external cause status
CPT/HCPCS: 36415; 70450; 71045; 72125; 72131; 72170; 73564; 73700; 80048; 80053; 82550; 82962; 83605; 83690; 83735; 83880; 84484; 85025; 85610; 87040; 90471; 90715; 93005; 96374; 96376; J3010; 97116; 97530; 97535; 99285-25